=== PATIENT | female | born 1945 | race Caucasian/White ===

== ENCOUNTER 2023-12-03 15:09 | Emergency (ER) | payer MEDICARE, SELFPAY ==
[2023-12-03 15:10] VITALS: BP 153/62; PULSE 96; RESP 18; TEMP 36.4; O2SAT 96; BMI 22.8
--- NOTE | 2023-12-03 15:17 | VDLE_ITS ---
Reason For Study: pain RIGHT LEFT CFV is compressible, spontaneous, phasic, GSV is normal. competent and demonstrates normal CFV is compressible, spontaneous, phasic, augmentation. competent, and demonstrates normal Procedure augmentation. This is a venous duplex using B-mode, color FV is compressible, spontaneous, phasic, flow and spectral Doppler. competent and demonstrates normal Exam performed in department. augmentation. The exam was diagnostic. POP V is compressible, spontaneous, phasic, A preliminary report was called and/or faxed competent and demonstrates normal to ED RN. augmentation. Pt taken back to ED. T/P Trunk is compressible. PTV is compressible. Acute deep vein thrombosis is noted in the Per V. It is dilated and NONCOMPRESSIBLE. VL/Venous Duplex US, Unilateral Interpretation Summary Acute deep vein thrombosis is noted in the left peroneal vein. Ordering Physician: Provider, Ed Physician Performed By: Clifton Hart RVT
--- OUTSIDE RECORDS SUMMARY | 2023-12-03 16:23 | XMS RPT_ITS | CCD ---
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 Name Role Phone Zane Galvan DO Primary Care Provider LUDWIG DARLING Attending Unavailable LUDWIG DARLING Primary Care Unavailable LUDWIG DARLING Admitting Unavailable Zane Galvan DO Primary Care Provider [phone] Zane Galvan DO Primary Care Provider Zane Galvan DO Primary Care Provider ALYSSA WESTBROOK Referring Unavailable GALVAN, ZANE Katherine Primary Care Unavailable ALYSSA WESTBROOK Referring Unavailable GALVAN, ZANE Katherine Primary Care Unavailable GALVAN, ZANE Katherine Primary Care Unavailable ALYSSA WESTBROOK Referring Unavailable GALVAN, ZANE Katherine Primary Care Unavailable ALYSSA WE[place]BROOK Attending Unavailable SOFIA SALEEM Attending Unavailable GALVAN, ZANE Katherine Primary Care Unavailable GALVAN, ZANE L Referring Unavailable SOFIA SALEEM Attending Unavailable GALVAN, ZANE Katherine Primary Care Unavailable GALVAN, ZANE L Referring Unavailable GALVAN, ZANE Katherine Primary Care Unavailable GRACIELA LYLES Attending Unavailable GALVAN, ZANE Katherine Primary Care Unavailable GALVAN, ZANE L Referring Unavailable GALVAN, ZANE L Primary Care Unavailable GALVAN, ZANE L Primary Care Unavailable GALVAN, ZANE L Attending Unavailable JORDYN LIRA Referring Unavailable GALVAN, ZANE Katherine Primary Care Unavailable JORDYN LIRA Attending Unavailable GALVAN, ZANE Katherine Primary Care Unavailable GALVAN, ZANE L Attending Unavailable GALVAN, ZANE L Primary Care Unavailable GALVAN, ZANE L Primary Care Unavailable SOFIA SALEEM Attending Unavailable GALVAN, ZANE Katherine Primary Care Unavailable ALYSSA WESTBROOK Attending Unavailable Allergies Allergy Classification Reported Allergen(s) Allergy Type Date of Onset Reaction(s) Facility (20 sources) HMG-CoA reductase inhibitor; Translations: [[id number] REDUCTASE INHIBITORS] Drug Intolerance 09-28-20 Myalgia [facility] Work Phone: (20 sources) rosuvastatin; Translations: [ROSUVASTATIN CALCIUM] Drug Allergy 09-15-20 Intolerance [facility] Work Phone: (20 sources) Simvastatin; Translations: [SIMVASTATIN] Drug Allergy 09-15-20 Intolerance [facility] Work Phone: (20 sources) Sulfamethoxazole / Trimethoprim; Translations: [SULFAMETHOXAZOLE-TR IMETHOPRIM] Drug Allergy 06-03-20 Hives [facility] Work Phone: Medications Current Medications Medication Drug Class(es) Dates Sig (Normalized) Sig (Original) amLODIPine 5 mg oral tablet (1 source) Dihydropyridine Calcium Channel Earl Start: 10-22-2023 End: 12-21-2023 take 1 tablet by mouth once daily amLODIPine (NORVASC) 5 mg tablet Indications: Essential hypertension, benign Take 1 tablet by mouth once daily. 30 tablet 1 10/22/2023 12/21/2023 Active Completed/Discontinued Medications Medication Drug Class(es) Dates Sig (Normalized) Sig (Original) aspirin 81 mg delayed release oral tablet (20 sources) Platelet Aggregation Inhibitor, Nonsteroidal Anti-inflammatory Drug take 1 tablet by mouth once daily aspirin, enteric coated (ASPIRIN, ENTERIC COATED) 81 mg EC tablet Take 81 mg by mouth once daily. 0 Active Problems Active Problems Problem Classification Problem Date Documented Date Episodic/Chronic Disorders of lipid metabolism (20 sources) Mixed hyperlipidemia; Translations: [Mixed hyperlipidemia] Onset: 06-03-2006 06-03-2006 Chronic Essential hypertension (20 sources) Benign essential hypertension; Translations: [Essential (primary) hypertension] Onset: 06-03-2006 06-03-2006 Chronic Genitourinary symptoms and ill-defined conditions (1 source) Incontinence without sensory awareness; Translations: [Urinary incontinence without sensory awareness] Onset: 11-09-2023 Chronic Menopausal disorders (4 sources) Postmenopausal bleeding; Translations: [Postmenopausal bleeding] Onset: 10-19-2023 09-28-2023 Chronic Nausea and vomiting (1 source) Nausea; Translations: [Nausea] Onset: 11-09-2023 Episodic Nutritional deficiencies (20 sources) Vitamin D deficiency; Translations: [Vitamin D deficiency, unspecified] Onset: 03-29-2019 03-29-2019 Chronic Osteoarthritis (20 sources) Osteoarthritis of left knee joint; Translations: [Unilateral primary osteoarthritis, left knee] Onset: 09-12-2013 09-12-2013 Chronic Other connective tissue disease (1 source) Other symptoms and signs involving the musculoskeletal system; Translations: [Rigidity (muscles)] Onset: 11-09-2023 Episodic Other female genital disorders (2 sources) Vaginal bleeding; Translations: [Abnormal uterine and vaginal bleeding, unspecified] 08-21-2023 Chronic Other female genital disorders (1 source) Abnormal uterine and vaginal bleeding, unspecified; Translations: [Vaginal bleeding] Onset: 09-28-2023 Chronic Other nervous system disorders (1 source) Unspecified abnormalities of gait and mobility; Translations: [Gait disturbance] Onset: 11-09-2023 Episodic Other non-traumatic joint disorders (20 sources) Arthropathy of multiple joints; Translations: [Arthropathy, unspecified] Onset: 03-16-2017 03-16-2017 Chronic Other non-traumatic joint disorders (1 source) Pain in left knee; Translations: [Pain in left knee] Episodic Residual codes; unclassified (1 source) Transient alteration of awareness; Translations: [Transient alteration of awareness] Onset: 11-09-2023 Episodic Past or Other Problems Problem Classification Problem Date Documented Da te Episodic/Chronic Diabetes mellitus without complication (20 sources) Hyperglycemia; Translations: [Impaired fasting glucose] Onset: 01-02-2020 01-02-2020 Episodic Malaise and fatigue (20 sources) Fatigue; Translations: [Other fatigue] Onset: 11-27-2021 11-27-2021 Episodic Other and unspecified benign neoplasm (19 sources) Benign neoplasm of colon; Translations: [Benign neoplasm of colon, unspecified] Onset: 08-22-2010 08-22-2010 Episodic Other bone disease and musculoskeletal deformities (19 sources) Disorder of skeletal system; Translations: [Disorder of bone, unspecified] Onset: 06-03-2006 03-11-2016 Episodic Other bone disease and musculoskeletal deformities (19 sources) Senile osteopenia; Translations: [Other specified disorders of bone density and structure, unspecified site] Onset: 09-28-2018 09-28-2018 Episodic Other non-traumatic joint disorders (3 sources) Pain in left knee; Translations: [Pain in joint, lower leg] Onset: 08-21-2023 07-06-2023 Episodic Other screening for suspected conditions (not mental disorders or infectious disease) (20 sources) Patient encounter status; Translations: [Encounter for screening for malignant neoplasm of colon] Onset: 08-22-2010 08-22-2010 Episodic Other skin disorders (19 sources) Actinic keratosis; Translations: [Actinic keratosis] Onset: 07-01-2019 07-01-2019 Episodic Results Test Name Value Interpretation Reference Range Facil ity Vital Signs Date Time Vital Sign Value Performing Clinician Dani avelar 10-19-2023 15:50-0500 Diastolic blood pressure 70 mm[Hg] Sofia Saleem APRN.WASH TUB MACHINE OPERATOR Work Phone: [facility] 10-19-2023 15:50-0500 Heart rate 86 /min Sofia Saelem APRN.WASH TUB MACHINE OPERATOR Work Phone: [facility] 10-19-2023 15:50-0500 SaO2% (BldA) [Mass fraction] 98 % Sofia Saleem LIVESTOCK BRANDS INSPECTOR.WASH TUB MACHINE OPERATOR Work Phone: [facility] 10-19-2023 15:50-0500 Systolic blood pressure 150 mm[Hg] Sofia Saleem LIVESTOCK BRANDS INSPECTOR.WASH TUB MACHINE OPERATOR Work Phone: [facility] 10-19-2023 15:23-0500 Body weight 59.42 kg Sofia Saleem LIVESTOCK BRANDS INSPECTOR.WASH TUB MACHINE OPERATOR Work Phone: [facility] 09-28-2023 13:31-0500 Body weight 59.88 kg Sofia Haury LIVESTOCK BRANDS INSPECTOR.WASH TUB MACHINE OPERATOR Work Phone: [facility] 09-28-2023 13:31-0500 Diastolic blood pressure 78 mm[Hg] Sofia Haury LIVESTOCK BRANDS INSPECTOR.WASH TUB MACHINE OPERATOR Work Phone: [facility] 09-28-2023 13:31-0500 Systolic blood pressure 132 mm[Hg] Sofia Haury LIVESTOCK BRANDS INSPECTOR.WASH TUB MACHINE OPERATOR Work Phone: [facility] 08-21-2023 09:13-0400 Body height 153 cm Zane Galvan DO Work Phone: [facility] 08-21-2023 09:13-0400 Body temperature 98.1 [degF] Zane Galvan DO Work Phone: [facility] 08-21-2023 09:13-0400 Body weight 58.97 kg Zane Galvan DO Work Phone: [facility] 08-21-2023 09:13-0400 Diastolic blood pressure 80 mm[Hg] Zane Galvan DO Work Phone: [facility] 08-21-2023 09:13-0400 Heart rate 80 /min Zane Galvan DO Work Phone: [facility] 08-21-2023 09:13-0400 Respiratory rate 16 /min Zane Galvan DO Work Phone: [facility] 08-21-2023 09:13-0400 Systolic blood pressure 136 mm[Hg] Zane Galvan DO Work Phone: [facility] 07-06-2023 08:29-0400 Body weight 58.97 kg Jordyn Lira LIVESTOCK BRANDS INSPECTOR.WASH TUB MACHINE OPERATOR Work Phone: [facility] 07-06-2023 08:29-0400 Diastolic blood pressure 70 mm[Hg] Jordyn Lira LIVESTOCK BRANDS INSPECTOR.WASH TUB MACHINE OPERATOR Work Phone: [facility] 07-06-2023 08:29-0400 Heart rate 84 /min Jordyn Lira LIVESTOCK BRANDS INSPECTOR.WASH TUB MACHINE OPERATOR Work Phone: [facility] 07-06-2023 08:29-0400 Respiratory rate 16 /min Jordyn Lira LIVESTOCK BRANDS INSPECTOR.WASH TUB MACHINE OPERATOR Work Phone: [facility] 07-06-2023 08:29-0400 Systolic blood pressure 120 mm[Hg] Jordyn Lira LIVESTOCK BRANDS INSPECTOR.WASH TUB MACHINE OPERATOR Work Phone: [facility] 02-17-2023 08:59-0400 Body temperature 97 [degF] Zane Galvan DO Work Phone: [facility] 02-17-2023 08:59-0400 Body weight 57.61 kg Zane Galvan DO Work Phone: [facility] 02-17-2023 08:59-0400 Diastolic blood pressure 80 mm[Hg] Zane Galvan DO Work Phone: [facility] 02-17-2023 08:59-0400 Heart rate 80 /min Zane Galvan DO Work Phone: [facility] 02-17-2023 08:59-0400 Respiratory rate 16 /min Zane Galvan DO Work Phone: [facility] 02-17-2023 08:59-0400 Systolic blood pressure 130 mm[Hg] Zane Galvan DO Work Phone: [facility] 03-19-2021 15:33-0400 Body height 154.9 cm Adrian Bustamante MD Work Phone: [facility] 03-19-2021 15:33-0400 Body mass index (BMI) [Ratio] 22.52 kg/m2 Adrian Bustamante MD Work Phone: [facility] 03-19-2021 15:33-0400 Body temperature 98.2 [degF] Adrian Bustamante MD Work Phone: [facility] 03-19-2021 15:33-0400 Body weight 54.07 kg Adrian Bustamante MD Work Phone: [employer] [facility] Encounters Encounter Date Encounter Type Care Provider Facility Start: 11-27-2023 End: 11-28-2023 ambulatory ZANE L GALVAN Facility:[facility] Start: 11-12-2023 Telephone encounter Zane boss DO [facility] Start: 11-09-2023 ambulatory ALYSSA Hernandez ty:[facility] Start: 11-05-2023 End: 11-05-2023 ambulatory ZANE L GALVAN Facility:[facility] Start: 10-22-2023 End: 10-22-2023 ambulatory ZANE L GALVAN Facility:[facility] Start: 10-21-2023 Telephone encounter Sofia pedersen JUAN CARLOS Work Phone: OB/Gynecology Procedures Date Procedure Procedure Detail Performing Clinician Start: 11-26-2021 Adult depression screening assessment Zane Macdonaldrison DO Work Phone: Plan of Treatment Date Care Activity Detail Author Start: 08-21-2026 Diabetes Screening Diabetes Screenhi ciro [facility] Start: 08-20-2025 DIABETES SCREEN DIABETES SCREEN [facility] Start: 08-20-2025 Diabetes Screening Diabetes Screenin g [facility] Start: 11-05-2024 Annual PCP Team [employer]ical [employer] Sales Engineer saritha Disease Visit Annual PCP Team Chronic Disease Visit [facility] Start: 10-22-2024 Covid-19 Vaccine () Covid-19 Vaccine () [facility] Immunizations Immunization Date Immunization Notes Care Provider Fa meredith 08-21-2023 pneumococcal (PCV20) vaccine, 20 valent (PREVNAR 20) Zane Galvan DO Work Phone: [facility] Work Phone: 08-21-2023 pneumococcal Conjuga te, unspecified formulation Zane Macdonaldrison DO Work Phone: [facility] Work Phone: 01-09-2023 zoster vaccine recombinant Zane Galvan DO Work Phone: [facility] 02-13-2021 COVID-19 vaccine, ag e 12+ yr (PFIZER-BIONTECH - PURPLE TOP) Zane Galvan DO Work Phone: [facility] 01-23-2021 COVID-19 vaccine, ag e 12+ yr (PFIZER-BIONTECH - PURPLE TOP) Zane Galvan DO Work Phone: [facility] 09-28-2018 pneumococcal conjuga te vaccine, 13 valent Zane Galvan DO Work Phone: [facility] Work Phone: 09-28-2018 influenza virus vacc ine, unspecified formulation Zane Galvan DO Work Phone: [facility] 01-01-2013 zoster vaccine, live Zane Galvan DO Work Phone: [facility] 12-06-2010 pneumococcal polysaccharide vaccine, 23 valent Zane Galvan DO Work Phone: [facility] 10-23-2002 tetanus and diphther ia toxoids, adsorbed, preservative free, for adult use (2 Lf of tetanus toxoid and 2 Lf of diphtheria toxoid) Zane Galvan DO Work Phone: [facility] Payers Date Payer Category Payer Medicare AETNA MEDICARE A ETNA MEDICARE PPO [id number] 2021-Present [phone] [address] [place] [address] PPO [id number] 2021 Medicare [id number] 2021 Medicare [place]IC[place]NA PPO [id number] 2021-Present [id number] 1945 Unknown [id number] Medicare [id number] Social History Date Type Detail Facility Start: 09-03-2011 End: 03-19-2021 Tobacco smoking status NHIS Never smoker [facility] Start: 09-03-2011 End: 03-19-2021 Tobacco use and exposure Never used [facility] Start: 03-19-2021 Alcohol intake Lifetime non-d braulio (finding) [facility] Start: 03-19-2021 History SDOH Alcohol Frequency 1 [facility] Start: 1945 Sex Assigned At Not on file A [facility] Start: 11-26-2021 End: 11-05-2023 Alcohol intake Current non-drinker of alcohol (finding) [facility] Start: 1945 Sex Assigned At Female C [facility] Start: 08-10-2022 End: 08-20-2022 Exposure to SARS-CoV-2 (event) Not sure [facility] Start: 02-17-2023 End: 07-06-2023 History of Social function [facility] Work Phone: Start: 02-17-2023 End: 07-06-2023 Tobacco use panel [facility] Work Phone: Adult Depression Screening Assessment 0 [facility] Work Phone: Start: 11-05-2020 Gender identity Identifies as female gender (finding) [facility] Start: 11-05-2020 Sexual orientation Heterosexual (fin ding) [facility] Clinical Notes 03-19-2021 to 11-27-2023 Telephone Encounter - Claribel Matute - 11/12/2023 7:49 AM ESTTelephone Encounter - Alyssa Westbrook APRN.CNP - 10/21/2023 5:24 PM ESTPatient InstructionsPatient Instructions Note Date & Type Note Facility 11-27-2023 Note HNO ID: [id number] Author: SOFIA SALEEM APRN.WASH TUB MACHINE OPERATOR Service: ? Author Type: Nurse Practitioner Type: Progress Notes Filed: 11/27/2023 12:25 Note Text: Sneha Pak is a 78 year old female who presents for problem visit of vaginal bleeding. HPI: Was seen previously for one episode of postmenopausal bleeding. Endometrial biopsy showed proliferative endometrium and patient was started on Megace with plan of repeat biopsy in 6 months. Also has been using Estrogen cream as prescribed. Called in yesterday with vaginal bleeding. OB History No obstetric history on file. 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 Vasovagal syncope PAST SURGICAL HISTORY Procedure Laterality Date COLONOSCOPY FLX DX W/COLLJ SPEC WHEN PFRMD 06-29-15 COLSC FLX W/RMVL OF TUMOR POLYP LESION SNARE TQ 08/22/10 LAPAROSCOPIC APPENDECTOMY 12-22-13 LIG/TRNSXJ FLP TUBE ABDL/VAG APPR UNI/BI 1976 Tubal ligation PAST SURGICAL HISTORY OF 2015 Bowel obstruction TONSILLECTOMY PRIMARY/SECONDARY Tonsillectomy XCAPSL CTRC RMVL INSJ IO LENS PROSTH W/O ECP Bilateral 2016 Cataract Extraction with PC IOL FAMILY HISTORY Problem Relation Age of Onset Heart Mother 76 heart attack and parkinsons Heart Father 78 of heart attack/ prostate cancer Heart Brother triple bypass at 65 Prostate Cancer Brother Prostate Cancer Brother Social History Tobacco Use Smoking status: Never Smokeless tobacco: Never Vaping Use Vaping Use: Never used Substance Use Topics Alcohol use: No Drug use: No Current Outpatient Medications Medication Sig amLODIPine (NORVASC) 5 mg tablet Take 1 tablet by mouth once daily. estradiol (ESTRACE) 0.01 % (0.1 mg/gram) vaginal cream Use 1 g vaginally once daily. megestrol (MEGACE) 40 mg tablet Take 1 tablet (40 mg) by mouth once daily. ezetimibe (ZETIA) 10 mg tablet Take 1 tablet by mouth once daily. meloxicam (MOBIC) 15 mg tablet Take 1 tablet by mouth once daily. lisinopril (ZESTRIL, PRINIVIL) 40 mg tablet Take 1 tablet by mouth once daily. aspirin, enteric coated (ASPIRIN, ENTERIC COATED) 81 mg EC tablet Take 81 mg by mouth once daily. calcium carbonate-Vit D3-minerals (CALTRATE-600 PLUS VITAMIN D3) 600 mg calcium- 400 unit Tab Take 1 tablet by mouth twice daily. Marquand-3 Fatty Acids (FISH OIL) 500 mg cap Take 1 capsule by mouth once daily. THERAPEUTIC MULTIVITAMIN TAB Take one(1) tablet daily. TURMERIC ORAL Take by mouth. Takes 1 tablet daily No current facility-administered medications for this visit. Allergies As of Date: 11/27/2023 Allergen Noted Reaction CRESTOR [ROSUVASTATIN CALCIUM] 09/15/2006 Intolerance SEPTRA [SULFAMETHOXAZOLE-TRIMETHO*2005 Hives SIMVASTATIN 09/15/2006 Intolerance [id number] REDUCTASE INHIBIT*09/28/2018 Myalgia Fully Assessed 11/27/2023 REVIEW OF SYSTEMS Abdomen: No bloating, early satiety, indigestion, or increased flatulence. No abdominal pain, nausea, vomiting, diarrhea, or constipation. Bladder: No dysuria, gross hematuria, urinary frequency, urinary urgency, or incontinence. Breast: No breast lumps, nipple d/c, overlying skin changes, redness or skin retraction. Expanded ROS: N/A Allergies and current medication updated:Yes EXAM: BP 168/58 Wt 128 lb (58.1kg) GENERAL: pleasant, female in no apparent distress HEENT: Normocephalic, atraumatic, mucus membranes moist, and no lesions PELVIC: external genitalia normal, normal Bartholin's glands, urethra, Musella's glands, no vulvar lesions, no cervical lesions, good vaginal support, physiologic discharge present, normal appearing perineal body and perianal region + continued improvement to atrophy, mild to labia majora + blood from cervical os BIMANUAL: deferred NEURO: alert and oriented x3,exam grossly non-focal EXTREMITIES: normal ASSESSMENT AND PLAN: 1. Postmenopausal bleeding - ICD9: 627.1, ICD10: N95.0 - Source of blood from os - Proliferative endometrium, on Megace - Consider Endosee with physician - To schedule follow up with physician Sofia Saleem APRN.WASH TUB MACHINE OPERATOR Medical Decision Making: Problems: Moderate: 1+ chronic illnesses with change Risk: Minimal: Minimal risk from testing/treatment Medical Decision Making Level: 2 - Straightforward [facility] 11-12-2023 Miscellaneous Notes Opened in error. Claribel Matute MA documented in this encounter [facility] 11-09-2023 Note HNO ID: [id number] Author: Sofia Harris RT(R) Service: ? Author Type: Technologist Type: Progress Notes Filed: 11/09/2023 10:05 AM Note Text: Radiology Service Progress Note PATIENT NAME: Sneha Pak DATE OF SERVICE: November 09, 2023 TIME: 10:05 AM PATIENT IDENTITY VERIFICATION COMPLETED USING TWO (2) IDENTIFIERS: Name and Date of confirmed by patient verbally. FALL SCREENING: Has the patient had 2 falls in the last year or 1 fall with injury or currently using an Ambulatory Assistive Device (Walker, Cane, Wheelchair, Crutches, etc.)? No PATIENT GENDER DATA: Female. status: : No status: NO. PATIENT RELEVANT IMPLANT DATA REVIEWED: Yes RADIOLOGY DEPARTMENT: Ultrasound PERIPHERAL IV DATA: Not applicable SIGNED BY: Sofia Harris RDMS, RVT November 09, 2023 10:05 AM [facility] 11-05-2023 Note HNO ID: [id number] Author: Alyssa Westbrook APRN.WASH TUB MACHINE OPERATOR Service: ? Author Type: Nurse Practitioner Type: Progress Notes Filed: 11/06/2023 7:30 AM Note Text: Chief Complaint Patient presents with: Hypertension HPI Sneha Pak is a 78 year old female who presents here today for Above Complaints. Today: Here for a BP recheck. Was started on Amlodipine 5mg daily on 10/22, states is tolerating medication well. Is taking in addition to already scheduled lisinopril 40mg daily. Last Thursday-6 days ago-around 11am-was outside with son helping son splitting wood. She got tired and son helped her sit down and she was resting on a stump. Son went inside to get water and banana for her. Son felt like she may throw up but she didn't. Son states she leaned back and he had to catch her-she went rigid-only lasted for about 20 seconds. Patient doesn't remember most of this. She then felt weak and lightheaded-had to have her son help her into the house and she napped. After about an hour was able to get up and around the house. At some point she had wet herself. BP when she checked BP at 2:30 pm was 83/70, but rechecked and got 145/60's and 135/60's. Did have a bowl of oatmeal that morning which is what she typically eats on a daily basis. That morning prior to the incident was 114/59. Son said she was talking funny/slurring speech. Denies current sx-no weakness, AANDOx3. Denies headache. No chest pains or palpitations. This morning BP was 110/80 and 125/104. Past medical history, appointments, medications, allergies reviewed. 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 Vasovagal syncope Previous Surgical History PAST SURGICAL HISTORY Procedure Laterality Date COLONOSCOPY FLX DX W/COLLJ SPEC WHEN PFRMD 06-29-15 COLSC FLX W/RMVL OF TUMOR POLYP LESION SNARE TQ 08/22/10 LAPAROSCOPIC APPENDECTOMY 12-22-13 LIG/TRNSXJ FLP TUBE ABDL/VAG APPR UNI/BI 1976 Tubal ligation PAST SURGICAL HISTORY OF 2014 Bowel obstruction TONSILLECTOMY PRIMARY/SECONDARY Tonsillectomy XCAPSL CTRC RMVL INSJ IO LENS PROSTH W/O ECP Bilateral 2015 Cataract Extraction with PC IOL Family History FAMILY HISTORY Problem Relation Age of Onset Heart Mother 76 heart attack and parkinsons Heart Father 78 of heart attack/ prostate cancer Heart Brother triple bypass at 65 Prostate Cancer Brother Prostate Cancer Brother Patient Allergies ALLERGIES Allergen Reactions Crestor [Rosuvastat* Intolerance Septra [Sulfamethox* Hives Simvastatin Intolerance Mueeqfl-Pbh-Gfc Red* Myalgia Current Medications Current Outpatient Medications on File Prior to Visit Medication Sig amLODIPine (NORVASC) 5 mg tablet Take 1 tablet by mouth once daily. estradiol (ESTRACE) 0.01 % (0.1 mg/gram) vaginal cream Use 1 g vaginally once daily. megestrol (MEGACE) 40 mg tablet Take 1 tablet (40 mg) by mouth once daily. ezetimibe (ZETIA) 10 mg tablet Take 1 tablet by mouth once daily. meloxicam (MOBIC) 15 mg tablet Take 1 tablet by mouth once daily. lisinopril (ZESTRIL, PRINIVIL) 40 mg tablet Take 1 tablet by mouth once daily. TURMERIC ORAL Take by mouth. Takes 1 tablet daily aspirin, enteric coated (ASPIRIN, ENTERIC COATED) 81 mg EC tablet Take 81 mg by mouth once daily. calcium carbonate-Vit D3-minerals (CALTRATE-600 PLUS VITAMIN D3) 600 mg calcium- 400 unit Tab Take 1 tablet by mouth twice daily. Marquand-3 Fatty Acids (FISH OIL) 500 mg cap Take 1 capsule by mouth once daily. THERAPEUTIC MULTIVITAMIN TAB Take one(1) tablet daily. No current facility-administered medications on file prior to visit. Social History Social History Tobacco Use Smoking status: Never Smokeless tobacco: Never Vaping Use Vaping Use: Never used Substance Use Topics Alcohol use: No Drug use: No Review of Symptoms REVIEW OF SYSTEMS See HPI, otherwise negative EXAM: BP 150/62 (BP Site: Left Arm, BP Position: Sitting, BP Cuff Size: Regular Adult) Pulse 89 Resp 16 Wt 58.6 kg (129 lb 3.2 oz) SpO2 96% BMI 25.04 kg/m? General Appearance: Well appearing, alert, in no acute distress, well-hydrated, well nourished.. Head: Normocephalic, no masses, lesions, tenderness or abnormalities. Eyes: Anicteric sclera. Pupils are equally round and reactive to light. Extraocular movements are intact. . Ears: External ears normal, canals clear. Nose/Sinuses: Nares normal, septum midline, mucosa normal, no drainage or sinus tenderness. Oropharynx: Lips, mucosa, and tongue normal, teeth and gums normal, oropharynx normal. Neck: Supple, no adenopathy; thyroid symmetric, normal size, no bruits. Lungs: Lungs clear to auscultation. No (more content not included)... [facility] 11-05-2023 Note HNO ID: [id number] Author: MARIA ESTHER ROWLAND MD Service: Cardiovascular Surgery Author Type: Physician Type: Procedures Filed: 11/27/2023 13:55 Note Text: Patient Name: Sneha Pak : 1945 Ordering Provider: Alyssa Westbrook Indication: R40.4 Transient alteration of awareness Type of Monitor: Extended Monitoring-Zio Patch Enrollment Dates: 11/05/2023-11/19/2023 [facility] 10-22-2023 Note HNO ID: [id number] Author: Giulia Steinberg RT(R) Service: Radiology Author Type: Technologist Type: Progress Notes Filed: 10/22/2023 1:31 PM Note Text: Radiology Service Progress Note PATIENT NAME: Sneha Pak DATE OF SERVICE: October 22, 2023 TIME: 1:22 PM PATIENT IDENTITY VERIFICATION COMPLETED USING TWO (2) IDENTIFIERS: Name and Date of confirmed by patient verbally. FALL SCREENING: Has the patient had 2 falls in the last year or 1 fall with injury or currently using an Ambulatory Assistive Device (Walker, Cane, Wheelchair, Crutches, etc.)? No PATIENT GENDER DATA: Female. status: : No status: NO. PATIENT RELEVANT IMPLANT DATA REVIEWED: Yes RADIOLOGY DEPARTMENT: General X-ray: Exam(s) Completed: Chest X-Ray PERIPHERAL IV DATA: Not applicable SIGNED BY: Giulia Steinberg RT(R) October 22, 2023 1:22 PM [facility] 10-22-2023 Note HNO ID: [id number] Author: Alyssa Westbrook APRN.WASH TUB MACHINE OPERATOR Service: ? Author Type: Nurse Practitioner Type: Progress Notes Filed: 10/26/2023 7:28 AM Note Text: Chief Complaint Patient presents with: BP Check HPI Sneha Pak is a 77 year old female who presents here today for Above Complaints. Today: Had elevated BP on 2 days ago at [facility] office when had biopsy completed. Was told to follow up with PCP to discuss this. Patient states this has been trending a bit higher over the past month or so. Denies CP, SOB, headaches, no new vision changes, dizziness, palpitations. Past medical history, appointments, medications, allergies reviewed. 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 Vasovagal syncope Previous Surgical History PAST SURGICAL HISTORY Procedure Laterality Date COLONOSCOPY FLX DX W/COLLJ SPEC WHEN PFRMD 06-29-15 COLSC FLX W/RMVL OF TUMOR POLYP LESION SNARE TQ 08/22/10 LAPAROSCOPIC APPENDECTOMY 12-22-13 LIG/TRNSXJ FLP TUBE ABDL/VAG APPR UNI/BI 1976 Tubal ligation PAST SURGICAL HISTORY OF 2014 Bowel obstruction TONSILLECTOMY PRIMARY/SECONDARY Tonsillectomy XCAPSL CTRC RMVL INSJ IO LENS PROSTH W/O ECP Bilateral 2016 Cataract Extraction with PC IOL Family History FAMILY HISTORY Problem Relation Age of Onset Heart Mother 76 heart attack and parkinsons Heart Father 78 of heart attack/ prostate cancer Heart Brother triple bypass at 65 Prostate Cancer Brother Prostate Cancer Brother Patient Allergies ALLERGIES Allergen Reactions Crestor [Rosuvastat* Intolerance Septra [Sulfamethox* Hives Simvastatin Intolerance Dsgklts-Gws-Cxr Red* Myalgia Current Medications Current Outpatient Medications on File Prior to Visit Medication Sig estradiol (ESTRACE) 0.01 % (0.1 mg/gram) vaginal cream Use 1 g vaginally once daily. megestrol (MEGACE) 40 mg tablet Take 1 tablet (40 mg) by mouth once daily. ezetimibe (ZETIA) 10 mg tablet Take 1 tablet by mouth once daily. meloxicam (MOBIC) 15 mg tablet Take 1 tablet by mouth once daily. lisinopril (ZESTRIL, PRINIVIL) 40 mg tablet Take 1 tablet by mouth once daily. TURMERIC ORAL Take by mouth. Takes 1 tablet daily aspirin, enteric coated (ASPIRIN, ENTERIC COATED) 81 mg EC tablet Take 81 mg by mouth once daily. calcium carbonate-Vit D3-minerals (CALTRATE-600 PLUS VITAMIN D3) 600 mg calcium- 400 unit Tab Take 1 tablet by mouth twice daily. Marquand-3 Fatty Acids (FISH OIL) 500 mg cap Take 1 capsule by mouth once daily. THERAPEUTIC MULTIVITAMIN TAB Take one(1) tablet daily. No current facility-administered medications on file prior to visit. Social History Social History Tobacco Use Smoking status: Never Smokeless tobacco: Never Vaping Use Vaping Use: Never used Substance Use Topics Alcohol use: No Drug use: No Review of Symptoms REVIEW OF SYSTEMS See HPI, otherwise negative EXAM: BP 154/82 (BP Site: Left Arm, BP Position: Sitting, BP Cuff Size: Regular Adult) Pulse 73 Resp 16 Wt 59 kg (130 lb) SpO2 96% BMI 25.19 kg/m? General Appearance: Well appearing, alert, in no acute distress, well-hydrated, well nourished.. Lungs: Lungs clear to auscultation. No wheezing, rhonchi, rales.. Heart: RRR without murmur, gallop, or rubs. No ectopy. Psychiatric: pleasant, cooperative. Health Maintenance List Hepatitis C Screening Never done DTaP,Tdap,Td Vaccine(1 - Tdap) due on 10/24/2002 RSV Vaccine(1 - 1-dose 60+ series) Never done Covid-19 Vaccine( - 2022- season) due on 07/24/2023 BP Controlled (<130/80) due on 08/20/2023 Influenza Vaccine(1) due on 05/22/2024 Annual PCP Team Chronic Disease Visit due on 08/21/2024 Diabetes Screening due on 08/21/2026 Bone Density Screening Completed Depression Assessment Completed Shingrix Vaccine Completed Pneumococcal Vaccine: 65+ Completed Colorectal Cancer Screening Discontinued Advance Directive Discussion Discontinued Data reviewed Previous records, office notes ASSESSMENT/PLAN: 1. Essential hypertension, benign - ICD9: 401.1, ICD10: I10 - Uncontrolled - Recommend home blood pressure monitoring, to bring results to next visit - Encouraged sodium restriction, DASH or Mediterranean diet - Recommend regular aerobic exercise Add amlodipine daily. To monitor HR and BP x2 weeks and report to the office. - XR CHEST 2V FRONTAL/LAT - AMLODIPINE 5 MG TABLET Alyssa Westbrook APRN.CNP [facility] 10-21-2023 Miscellaneous Notes Noted, thank you. Alyssa Westbrook APRN.CNP Patient calling to say she had a biopsy done by [facility] and Sofia Saleem [employer] CONSULTANT advised her that her BP was elevated and she should follow up with her PCP. BP was 150/70. She does not take it routinely at home. She says when she checked it on 10/05/23 it was 144/59. She says she is not having any symptoms. Scheduled appointment with Alyssa Westbrook NP for follow up. Tessa Velasco RN documented in this encounter [facility] 10-21-2023 Miscellaneous Notes Called patient. Notified of needing f/u with PCP for elevated BP. Scheduled 6 month EMB f/u. Carmita Tapia RN Please assist patient in scheduling 6 month EMB/follow up. To notify with further episodes of postmenopausal bleeding. Sofia Saleem APRN.CNP Also, BP was elevated at appointment. Would encourage follow up with PCP about this. Please notify patient. Sofia Saleem APRN.CNP Called patient to discuss proliferative endometrium results. Reviewed that it is not a form of endometrial hyperplasia. Reviewed that it could indicate that she has active estradiol secretion. Reviewed that the possible excess of estrogen puts her at risk of developing endometrial hyperplasia. Discussed treatment and management options including: Levonorgestrel IUD or oral progesterone Based on negative history of endometrial hyperplasia, no obesity, and no family history of endometrial cancer, likely low risk for developing hyperplasia and plan for oral progesterone. Reviewed possible side effects of bloating irritability, depression, or headache. Plan is to start Megace 40 mg daily and to repeat biopsy in about 6 months. Please assist patient in scheduling. Patient verbalizes understanding to above information and denies further questions. She does report another episode of postmenopausal bleeding today - may be related to EMB done 2 days ago. Patient also asking estrogen cream rx change from [facility] to [facility] pharmacy. Discussed possible increase in cost. To notify if she would prefer it back to [facility] based on cost. Sofia Saleem APRN.MACARENA documented in this encounter [facility] 10-19-2023 Note HNO ID: [id number] Author: Sofia Saleem APRN.CNP Service: ? Author Type: Nurse Practitioner Type: Progress Notes Filed: 10/19/2023 4:08 PM Note Text: Sneha is a 77 year old Female who presents today for an endometrial biopsy for post menopausal bleeding. Continues to use estrogen cream. test: n/a UNIVERSAL PROTOCOL / SAFETY CHECKLIST Procedure to be Performed: Endometrial Biopsy Sign In: A Moment of CARE was completed. Personnel directly involved with the procedure wore the appropriate PPE (Personal Protective Equipment). Patient/Surrogate Stated/Verified: PATIENT VERIFIED(optional for EMERGENT procedures): Patient name, Date of , Relevant allergies, and The intended procedure Time Out Communication: Intended patient and procedure match the source documents. Consent documented and matches the intended procedure. Sign Out: SIGN OUT (optional for EMERGENT procedures): All specimen containers correctly labeled. All instruments, equipment, possible retained foreign bodies accounted for. Post-procedure follow-up management communicated and Plan of Care Visit completed when applicable. PROCEDURE: EXTERNAL GENITALIA: Normal in appearance without lesions VAGINA: Normal in appearance without lesions BIOPSY: Speculum placed into the vagina with excellent visualization of the cervix. Cervix cleaned with betadine. Anterior lip of cervix grasped with single toothed tenaculum. Uterus sounded to 9 cm. Pipelle inserted into the uterus without difficulty and endometrial biopsy obtained. Specimen labeled and sent to pathology. Hemostasis achieved. Significant improvement to atrophy noted. Procedure Summary: Patient tolerated procedure well. ASSESSMENT: post menopausal bleeding PLAN: Specimens labeled and sent to Pathology. Will notify patient of results in 1-2 weeks. Post-procedure instructions reviewed and written material given to the patient. Sofia Saleem APRN.[facility] 10-19-2023 Instructions Shira Carlin Ma - 10/19/2023 3:17 PM EST YOUR RECOVERY After your biopsy you may have: Vaginal bleeding (less than a normal menstrual period) Mild cramping Do NOT put anything in the vagina for 1 week after your endometrial biopsy. This includes: tampons douches and refraining from having sexual intercourse If you have any discomfort, you may take an over the counter pain medication (motrin, advil, ibuprofen, tylenol, etc). If this does not relieve your discomfort, contact the office. It is okay to wear a sanitary pad until the discharge and spotting stops. RISKS Although problems seldom occur with endometrial biopsies, there can be some complications. You may feel faint during and shortly after the procedure as well as have some bleeding after the procedure. There is also a risk of infection after the procedure. These complications are rare and can be easily treated. You should contact you doctor is you have any of the following: Heavy bleeding (more than your normal period) Bleeding with clots Severe abdominal pain Fever (more than 100.4F) Foul smelling vaginal discharge RESULTS We will have the results of your biopsy in 1-2 weeks. If you do not hear the results of your biopsy after 2 weeks, please contact the office for the results. If you have any additional questions or concerns please do not hesitate to contact the office. documented in this encounter [facility] 10-19-2023 History of Present illness Narrative Sneha is a 77 year old Female who presents today for an endometrial biopsy for post menopausal bleeding. Continues to use estrogen cream. test: n/a UNIVERSAL PROTOCOL / SAFETY CHECKLIST Procedure to be Performed: Endometrial Biopsy Sign In: A Moment of CARE was completed. Personnel directly involved with the procedure wore the appropriate PPE (Personal Protective Equipment). Patient/Surrogate Stated/Verified: PATIENT VERIFIED(optional for EMERGENT procedures): Patient name, Date of , Relevant allergies, and The intended procedure Time Out Communication: Intended patient and procedure match the source documents. Consent documented and matches the intended procedure. Sign Out: SIGN OUT (optional for EMERGENT procedures): All specimen containers correctly labeled. All instruments, equipment, possible retained foreign bodies accounted for. Post-procedure follow-up management communicated and Plan of Care Visit completed when applicable. PROCEDURE: EXTERNAL GENITALIA: Normal in appearance without lesions VAGINA: Normal in appearance without lesions BIOPSY: Speculum placed into the vagina with excellent visualization of the cervix. Cervix cleaned with betadine. Anterior lip of cervix grasped with single toothed tenaculum. Uterus sounded to 9 cm. Pipelle inserted into the uterus without difficulty and endometrial biopsy obtained. Specimen labeled and sent to pathology. Hemostasis achieved. Significant improvement to atrophy noted. Procedure Summary: Patient tolerated procedure well. ASSESSMENT: post menopausal bleeding PLAN: Specimens labeled and sent to Pathology. Will notify patient of results in 1-2 weeks. Post-procedure instructions reviewed and written material given to the patient. Sofia Saleem APRN.MACARENA documented in this encounter [facility] 10-14-2023 Miscellaneous Notes Patient notified. JORDYN PENA RN I see she has an appointment 10/19 for EMB. We can discuss and follow up then. Likely not related to estrogen cream use. The long drive could've contributed to the hip pain. Monitor symptoms - to schedule follow up either virtually or in office if estrogen cream is not working out for patient. Sofia Saleem APRN.MACARENA Patient seen on 09/28/23. States she used the vaginal estrogen cream for 2 weeks. Patient has noticed a flare up in her arthritis since using it. Drove to [place] and had hip pain. Patient asking if it's possible the estrogen could cause this. Discussed local vs systemic effect of medication. Patient aware EH returns to the office tomorrow. Carmita Tapia RN documented in this encounter [facility] 09-28-2023 Note HNO ID: [id number] Author: Sofia Saleem APRN.MACARENA Service: ? Author Type: Nurse Practitioner Type: Progress Notes Filed: 09/28/2023 2:27 PM Note Text: Mental Health Counselor offered: Patient declines. Sneha Pak is a 77 year old female who presents for problem visit of postmenopausal bleeding x1 episode. HPI: Patient reports that she saw PCP at the end of July for an episode of vaginal bleeding that occurred one time around August 11. Bleeding was pink discharge/small amount of bright red. Was not doing anything outside of her normal routine. However, she did have intercourse prior to the bleeding. She's not sure how soon before, but not the day of. No bleeding since. Denies vaginal dryness or irritation. Has subsequent intercourse and has had no bleeding. 09/01/23 ultrasound showed a 0.2 cm endometrial echo complex, small amount of free fluid in the endometrial canal, and calcifications of the uterus. OB History No obstetric history on file. 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 Vasovagal syncope PAST SURGICAL HISTORY Procedure Laterality Date COLONOSCOPY FLX DX W/COLLJ SPEC WHEN PFRMD 06-29-15 COLSC FLX W/RMVL OF TUMOR POLYP LESION SNARE TQ 08/22/10 LAPAROSCOPIC APPENDECTOMY 12-22-13 LIG/TRNSXJ FLP TUBE ABDL/VAG APPR UNI/BI 1976 Tubal ligation PAST SURGICAL HISTORY OF 2014 Bowel obstruction TONSILLECTOMY PRIMARY/SECONDARY Tonsillectomy XCAPSL CTRC RMVL INSJ IO LENS PROSTH W/O ECP Bilateral 2015 Cataract Extraction with PC IOL FAMILY HISTORY Problem Relation Age of Onset Heart Mother 76 heart attack and parkinsons Heart Father 78 of heart attack/ prostate cancer Heart Brother triple bypass at 65 Prostate Cancer Brother Prostate Cancer Brother Social History Tobacco Use Smoking status: Never Smokeless tobacco: Never Vaping Use Vaping Use: Never used Substance Use Topics Alcohol use: No Drug use: No Current Outpatient Medications Medication Sig ezetimibe (ZETIA) 10 mg tablet Take 1 tablet by mouth once daily. meloxicam (MOBIC) 15 mg tablet Take 1 tablet by mouth once daily. lisinopril (ZESTRIL, PRINIVIL) 40 mg tablet Take 1 tablet by mouth once daily. TURMERIC ORAL Take by mouth. Takes 1 tablet daily aspirin, enteric coated (ASPIRIN, ENTERIC COATED) 81 mg EC tablet Take 81 mg by mouth once daily. calcium carbonate-Vit D3-minerals (CALTRATE-600 PLUS VITAMIN D3) 600 mg calcium- 400 unit Tab Take 1 tablet by mouth twice daily. Marquand-3 Fatty Acids (FISH OIL) 500 mg cap Take 1 capsule by mouth once daily. THERAPEUTIC MULTIVITAMIN TAB Take one(1) tablet daily. No current facility-administered medications for this visit. Allergies As of Date: 09/28/2023 Allergen Noted Reaction CRESTOR [ROSUVASTATIN CALCIUM] 09/15/2006 Intolerance SEPTRA [SULFAMETHOXAZOLE-TRIMETHO*2005 Hives SIMVASTATIN 09/15/2006 Intolerance TAWPOSQ-LIR-EYI REDUCTASE INHIBIT*09/28/2018 Myalgia Fully Assessed 09/28/2023 REVIEW OF SYSTEMS Abdomen: No bloating, early satiety, indigestion, or increased flatulence. No abdominal pain, nausea, vomiting, diarrhea, or constipation. Bladder: No dysuria, gross hematuria, urinary frequency, urinary urgency, or incontinence. Breast: No breast lumps, nipple d/c, overlying skin changes, redness or skin retraction. Expanded ROS: N/A Allergies and current medication updated:Yes EXAM: There were no vitals taken for this visit. GENERAL: pleasant, female in no apparent distress HEENT: Normocephalic, atraumatic, mucus membranes moist, and no lesions NECK: Supple, full range of motion, no adenopathy, and thyroid normal DERMATOLOGY: Normal, without lesions, non-icteric, and non-hirsute BREAST: deferred CHEST: Normal inspiratory effort ABDOMEN: soft, non-tender, and no masses PELVIC: external genitalia normal, normal Bartholin's glands, urethra, Musella's glands, no vulvar lesions, no cervical lesions, good vaginal support, physiologic discharge present, normal appearing perineal body and perianal region, pale cervix, atrophy noted to vaginal pina and cervix BIMANUAL: uterus normal size, shape and consistency, no adnexal masses, and non-tender NEURO: alert and oriented x3,exam grossly non-focal EXTREMITIES: normal ASSESSMENT/PLAN: 1. Postmenopausal bleeding - ICD9: 627.1, ICD10: N95.0 (primary diagnosis) - 1 episode in July - Reviewed potential causes of PMB, including atrophy or endometrial malignancy - (more content not included)... [facility] 09-28-2023 Instructions Sofia Saleem APRN.CNP - 09/28/2023 2:10 PM EST Estrogen cream: Vaginally nightly for 2 weeks THEN twice a week [facility] Should be around $25-30. [address] [place], [place] Ask them to help you use [facility] to get this discount. If you are asked to pay a lot more than 25-30$, please call me. Plan for endometrial biopsy. Take 600 mg of Ibuprofen 30 minutes prior. [place] will need to be avoided for 1-2 weeks after procedure. documented in this encounter [facility] 09-28-2023 History of Present illness Narrative Mental Health Counselor offered: Patient declines. Sneha Pak is a 77 year old female who presents for problem visit of postmenopausal bleeding x1 episode. HPI: Patient reports that she saw PCP at the end of July for an episode of vaginal bleeding that occurred one time around August 11. Bleeding was pink discharge/small amount of bright red. Was not doing anything outside of her normal routine. However, she did have intercourse prior to the bleeding. She's not sure how soon before, but not the day of. No bleeding since. Denies vaginal dryness or irritation. Has subsequent intercourse and has had no bleeding. 09/01/23 ultrasound showed a 0.2 cm endometrial echo complex, small amount of free fluid in the endometrial canal, and calcifications of the uterus. OB History No obstetric history on file. 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 Vasovagal syncope PAST SURGICAL HISTORY Procedure Laterality Date COLONOSCOPY FLX DX W/COLLJ SPEC WHEN PFRMD 06-29-15 COLSC FLX W/RMVL OF TUMOR POLYP LESION SNARE TQ 08/22/10 LAPAROSCOPIC APPENDECTOMY 12-22-13 LIG/TRNSXJ FLP TUBE ABDL/VAG APPR UNI/BI 1976 Tubal ligation PAST SURGICAL HISTORY OF 2014 Bowel obstruction TONSILLECTOMY PRIMARY/SECONDARY <AGE 11 Tonsillectomy XCAPSL CTRC RMVL INSJ IO LENS PROSTH W/O ECP Bilateral 2016 Cataract Extraction with PC IOL FAMILY HISTORY Problem Relation Age of Onset Heart Mother 76 heart attack and parkinsons Heart Father 78 of heart attack/ prostate cancer Heart Brother triple bypass at 65 Prostate Cancer Brother Prostate Cancer Brother Social History Tobacco Use Smoking status: Never Smokeless tobacco: Never Vaping Use Vaping Use: Never used Substance Use Topics Alcohol use: No Drug use: No Current Outpatient Medications Medication Sig ezetimibe (ZETIA) 10 mg tablet Take 1 tablet by mouth once daily. meloxicam (MOBIC) 15 mg tablet Take 1 tablet by mouth once daily. lisinopril (ZESTRIL, PRINIVIL) 40 mg tablet Take 1 tablet by mouth once daily. TURMERIC ORAL Take by mouth. Takes 1 tablet daily aspirin, enteric coated (ASPIRIN, ENTERIC COATED) 81 mg EC tablet Take 81 mg by mouth once daily. calcium carbonate-Vit D3-minerals (CALTRATE-600 PLUS VITAMIN D3) 600 mg calcium- 400 unit Tab Take 1 tablet by mouth twice daily. Marquand-3 Fatty Acids (FISH OIL) 500 mg cap Take 1 capsule by mouth once daily. THERAPEUTIC MULTIVITAMIN TAB Take one(1) tablet daily. No current facility-administered medications for this visit. Allergies As of Date: 09/28/2023 Allergen Noted Reaction CRESTOR [ROSUVASTATIN CALCIUM] 09/15/2006 Intolerance SEPTRA [SULFAMETHOXAZOLE-TRIMETHO*2005 Hives SIMVASTATIN 09/15/2006 Intolerance EVFHYWL-QDV-ILS REDUCTASE INHIBIT*09/28/2018 Myalgia Fully Assessed 09/28/2023 REVIEW OF SYSTEMS Abdomen: No bloating, early satiety, indigestion, or increased flatulence. No abdominal pain, nausea, vomiting, diarrhea, or constipation. Bladder: No dysuria, gross hematuria, urinary frequency, urinary urgency, or incontinence. Breast: No breast lumps, nipple d/c, overlying skin changes, redness or skin retraction. Expanded ROS: N/A Allergies and current medication updated:Yes EXAM: There were no vitals taken for this visit. GENERAL: pleasant, female in no apparent distress HEENT: Normocephalic, atraumatic, mucus membranes moist, and no lesions NECK: Supple, full range of motion, no adenopathy, and thyroid normal DERMATOLOGY: Normal, without lesions, non-icteric, and non-hirsute BREAST: deferred CHEST: Normal inspiratory effort ABDOMEN: soft, non-tender, and no masses PELVIC: external genitalia normal, normal Bartholin's glands, urethra, Musella's glands, no vulvar lesions, no cervical lesions, good vaginal support, physiologic discharge present, normal appearing perineal body and perianal region, pale cervix, atrophy noted to vaginal pina and cervix BIMANUAL: uterus normal size, shape and consistency, no adnexal masses, and non-tender NEURO: alert and oriented x3,exam grossly non-focal EXTREMITIES: normal ASSESSMENT/PLAN: 1. Postmenopausal bleeding - ICD9: 627.1, ICD10: N95.0 (primary diagnosis) - 1 episode in July - Reviewed potential causes of PMB, including atrophy or endometrial malignancy - Endometrial Biopsy recommended. Reviewed post care with patient and what to expect. Patient would like to return to have biopsy done. - Pt. Low risk for endometrial malignancy based on negative family history, BMI, but would still recommend to rule out malignancy 2. Vaginal atrophy - ICD9: 627.3, ICD10: N95.2 - Noted to vaginal pina and cervix - Vaginal estrogen cream prescribed - Reviewed local effects, not systemic - Discussed how to use and timing for improvement - To reassess at EMB appointment, although more time may be needed to see improvement Sofia Saleem APRN.CNP Medical Decision Making: Problems: Moderate: New problem with uncertain prognosis Data: Unique source(s) for external note(s) reviewed: 1 Unique test result(s) reviewed: 1 Risk: Low: Low risk from testing/treatment Moderate: Drug management Medical Decision Making Level: 4 - Moderate documented in this encounter [facility] 09-10-2023 Miscellaneous Notes Pt returned call and given provider's message below with verbalized understanding. Transferred to pss. Pt spouse informed. Will have pt contact office. Claribel Matute MA Please inform patient that her pelvic US shows IMPRESSION: Small amount of free fluid in the endometrial canal. Foci of calcifications in the uterus. Ovaries not identified. I would like her to follow up with Garbage Collector Driver to determine if any further endometrial biopsy or testing is needed, since she had some vaginal bleeding. Zane Galvan DO documented in this encounter [facility] 09-02-2023 Miscellaneous Notes Phoned patient and went over results, notes from Dr Galvan with understanding. Gave patient the my chart help line phone number, she has not been able to get on her my chart. Please inform patient that overall her labs are stable except for high cholesterol.continue to limit fried/fast/fatty foods in diet Zane Galvan DO documented in this encounter [facility] 09-01-2023 Note HNO ID: [id number] Author: Kaur Riojas RDMS Service: ? Author Type: Cotton Roll Packer Type: Progress Notes Filed: 09/01/2023 11:19 AM Note Text: Radiology Service Progress Note PATIENT NAME: Sneha Pak DATE OF SERVICE: September 01, 2023 TIME: 11:19 AM PATIENT IDENTITY VERIFICATION COMPLETED USING TWO (2) IDENTIFIERS: Name and Date of confirmed by patient verbally. FALL SCREENING: Has the patient had 2 falls in the last year or 1 fall with injury or currently using an Ambulatory Assistive Device (Walker, Cane, Wheelchair, Crutches, etc.)? No PATIENT GENDER DATA: Female. status: : No status: NO. PATIENT RELEVANT IMPLANT DATA REVIEWED: Not Applicable RADIOLOGY DEPARTMENT: Ultrasound PERIPHERAL IV DATA: Not applicable SIGNED BY: Kaur Riojas RDMS September 01, 2023 11:19 AM [facility] 08-21-2023 Note HNO ID: [id number] Author: Graciela Lyles PA-C Service: ? Author Type: Physician Rejoiner Type: Progress Notes Filed: 08/21/2023 2:17 PM Note Text: Graciela Lyles PA-C Department of Orthopaedics Orthopaedics [address] [place] [id number] Dept: [phone] August 21, 2023 SUBJECTIVE: CHIEF COMPLAINT: New and Knee Pain of the Left Knee HPI: Ms. Sneha Pak is a 77 year old female. She presents today with intermittent left knee pain. She is here today with her . Today she rates her pain a 0 on a scale of 0 to 10 at rest. She states that she does not have a significant amount of daily knee pain. She does have occasional sharp knee pain, most recently it lasted for a few days this summer. She feels like her knee is knocking together. She takes no mediations for the pain. She denies any numbness/tingling, weakness, locking/catching, giving out or previous knee surgery. 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 Vasovagal syncope Past Surgical History: PAST SURGICAL HISTORY Procedure Laterality Date COLONOSCOPY FLX DX W/COLLJ SPEC WHEN PFRMD 06-29-15 COLSC FLX W/RMVL OF TUMOR POLYP LESION SNARE TQ 08/22/10 LAPAROSCOPIC APPENDECTOMY 12-22-13 LIG/TRNSXJ FLP TUBE ABDL/VAG APPR UNI/BI 1976 Tubal ligation PAST SURGICAL HISTORY OF 2014 Bowel obstruction TONSILLECTOMY PRIMARY/SECONDARY Tonsillectomy XCAPSL CTRC RMVL INSJ IO LENS PROSTH W/O ECP Bilateral 2016 Cataract Extraction with PC IOL Family History: FAMILY HISTORY Problem Relation Age of Onset Heart Mother 76 heart attack and parkinsons Heart Father 78 of heart attack/ prostate cancer Heart Brother triple bypass at 65 Prostate Cancer Brother Prostate Cancer Brother Social History: Social History Tobacco Use Smoking status: Never Smokeless tobacco: Never Vaping Use Vaping Use: Never used Substance Use Topics Alcohol use: No Drug use: No Medications: Current Outpatient Medications Medication Sig ezetimibe (ZETIA) 10 mg tablet Take 1 tablet by mouth once daily. meloxicam (MOBIC) 15 mg tablet Take 1 tablet by mouth once daily. lisinopril (ZESTRIL, PRINIVIL) 40 mg tablet Take 1 tablet by mouth once daily. TURMERIC ORAL Take by mouth. Takes 1 tablet daily aspirin, enteric coated (ASPIRIN, ENTERIC COATED) 81 mg EC tablet Take 81 mg by mouth once daily. calcium carbonate-Vit D3-minerals (CALTRATE-600 PLUS VITAMIN D3) 600 mg calcium- 400 unit Tab Take 1 tablet by mouth twice daily. Marquand-3 Fatty Acids (FISH OIL) 500 mg cap Take 1 capsule by mouth once daily. THERAPEUTIC MULTIVITAMIN TAB Take one(1) tablet daily. No current facility-administered medications for this visit. Allergies: Crestor [Rosuvastatin Calcium], Septra [Sulfamethoxazole-Trimethoprim], Simvastatin, and Wuawivj-Gop-Pfs Reductase Inhibitors ROS: General: negative for fatigue, malaise, weight loss/gain Musculoskeletal: see HPI Psych: no depression, anxiety OBJECTIVE: Ms. Sneha Pak is a pleasant 77 year old in no apparent distress. Gen:There were no vitals taken for this visit. nl development, non obese, no deformities ENT: Normocephalic, normal hearing, moist mucosa CV: Pulses:DP/PT= 2+ and symmetric, capillary refill < 2 secs, no peripheral edema/varicosities Skin: no rash, bruising or lesions. Good turgor. Psych: cooperative and appropriate, alert and oriented x 3, good mood and affect. Musculoskeletal: Right knee, bilateral hips and ankles FROM without pain or limitation. 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 PATELLOFEMORAL DEGENERATIVE CHANGES ARE UNCHANGED. Braker Passenger Train: PSCLinda Transcribe Date/Time: Jul 08 2023 2:47P Dictated by : BRIANDA ALVARADO MD This examination was interpreted and the report reviewed and electronically signed by: BRIANDA ALVARADO MD on Jul 08 2023 2:49PM EST Results-Findings * * *Final Report* * * DATE OF EXAM: Jul 06 2023 9:00AM WOX [id number] - XR KNEE 4V AP/PA BOTH+LAT/PHILLIP LT / PROCEDURE REASON: Acute pain of left knee * * * * Physician Interpretation * * * * HISTORY: 7 (more content not included)... [facility] 08-21-2023 Note HNO ID: [id number] Author: Zane Galvan, DO Service: ? Author Type: Physician Type: Progress Notes Filed: 08/21/2023 5:40 PM Note Text: CC: Sneha Pak is a 77 year old female who presents to the office for follow up HPI: Vaginal bleeding episode, pink discharge, no pelvic pain or pressure, no urinary symptoms, occurred about 10 days ago. No known injuries. No hx of uterine surgery in the past. Has had a tubal ligation >30 years ago. 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 Vasovagal syncope PAST SURGICAL HISTORY Procedure Laterality Date COLONOSCOPY FLX DX W/COLLJ SPEC WHEN PFRMD 06-29-15 COLSC FLX W/RMVL OF TUMOR POLYP LESION SNARE TQ 08/22/10 LAPAROSCOPIC APPENDECTOMY 12-22-13 LIG/TRNSXJ FLP TUBE ABDL/VAG APPR UNI/BI 1976 Tubal ligation PAST SURGICAL HISTORY OF 2014 Bowel obstruction TONSILLECTOMY PRIMARY/SECONDARY Tonsillectomy XCAPSL CTRC RMVL INSJ IO LENS PROSTH W/O ECP Bilateral 2016 Cataract Extraction with PC IOL Social History: Social History Tobacco Use Smoking status: Never Smokeless tobacco: Never Vaping Use Vaping Use: Never used Substance Use Topics Alcohol use: No Drug use: No FAMILY HISTORY Problem Relation Age of Onset Heart Mother 76 heart attack and parkinsons Heart Father 78 of heart attack/ prostate cancer Heart Brother triple bypass at 65 Prostate Cancer Brother Prostate Cancer Brother Current Outpatient prescriptions: ezetimibe (ZETIA) 10 mg tablet Take 1 tablet by mouth once daily. meloxicam (MOBIC) 15 mg tablet Take 1 tablet by mouth once daily. lisinopril (ZESTRIL, PRINIVIL) 40 mg tablet Take 1 tablet by mouth once daily. TURMERIC ORAL Take by mouth. Takes 1 tablet daily aspirin, enteric coated (ASPIRIN, ENTERIC COATED) 81 mg EC tablet Take 81 mg by mouth once daily. calcium carbonate-Vit D3-minerals (CALTRATE-600 PLUS VITAMIN D3) 600 mg calcium- 400 unit Tab Take 1 tablet by mouth twice daily. Marquand-3 Fatty Acids (FISH OIL) 500 mg cap Take 1 capsule by mouth once daily. THERAPEUTIC MULTIVITAMIN TAB Take one(1) tablet daily. Allergies: ALLERGIES Allergen Reactions Crestor [Rosuvastat* Intolerance Septra [Sulfamethox* Hives Simvastatin Intolerance Ojvmvbt-Enz-Ugy Red* Myalgia ROS: See HPI PE: 08/21/23 0913 BP: 136/80 Pulse: 80 Resp: 16 Temp: 36.7 ?C (98.1 ?F) TempSrc: Left Tympanic Weight: 59 kg (130 lb) Height: 153 cm (5' 0.24 ) Gen: AANDO, NAD, non-toxic appearing, Pleasant, cooperative HEENT: NT/AC, PERRLA, EOMs intact b/l, nares clear and patent b/l, pharynx without erythema, exudate or lesions. Uvula midline. MMM, EACs without erythema or debris. TMs pearly weir with intact landmarks b/l. Neck: supple, No cervical LAD, no thyromegaly, no carotid bruits CV: RRR, normal S1 and S2, no murmurs, no gallops, no rubs, Pulses 2+ and symmetric in UE and LE b/l Lungs: normal respiratory effort, CTA b/l, no wheezing or rhonchi or rales Abd: soft, NT, ND, +BS, no hepatosplenomegaly MS: FROM all 4 extremities Neuro: CN II-XII intact b/l, strength 5/5 b/l UE and LE, DTRs 2/4 UE and LE, sensation intact. Skin: warm, dry, intact, No rashes or lesions on exposed skin. No edema, normal pulses ASSESSMENT/PLAN: 1. Vaginal bleeding - ICD9: 623.8, ICD10: N93.9 (primary diagnosis) US pelvis as ordered, will need DIRECTOR REGULATORY AFFAIRS exam and further testing as d/w her today - US FEMALE PELVIS TRANSVAG - US FEMALE PELVIS TRANSABD LTD 2. IFG (impaired fasting glucose) - ICD9: 790.21, ICD10: R73.01 Diet controlled, recheck labs 3. Dyslipidemia - ICD9: 272.4, ICD10: E78.5 - Controlled - Continue current medications - Counseled on healthy diet and regular exercise 4. Vitamin D deficiency - ICD9: 268.9, ICD10: E55.9 Continue supplement 5. Essential hypertension, benign - ICD9: 401.1, ICD10: I10 - Controlled - Continue current medications - Recommend home blood pressure monitoring, to bring results to next visit - Encouraged sodium restriction, DASH or Mediterranean diet - Recommend regular aerobic exercise - Discussed need for and benefit of weight loss. BMI 25.19 kg/(m2) 6. Borderline abnormal TFTs - ICD9: 794.5, ICD10: R94.6 stable Zane Galvan DO To ER if develops chest pain, shortness of breath, or severe worsening of symptoms. Discussed risks, benefits, alternatives, and potential side effects of medications. Patient expressed understanding and agreed with the plan. Zane Galvan DO [address] [place] [address] [facility] 08-21-2023 History of Present illness Narrative CC: Sneha Pak is a 77 year old female who presents to the office for follow up HPI: Vaginal bleeding episode, pink discharge, no pelvic pain or pressure, no urinary symptoms, occurred about 10 days ago. No known injuries. No hx of uterine surgery in the past. Has had a tubal ligation >30 years ago. 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 Vasovagal syncope PAST SURGICAL HISTORY Procedure Laterality Date COLONOSCOPY FLX DX W/COLLJ SPEC WHEN PFRMD 06-29-15 COLSC FLX W/RMVL OF TUMOR POLYP LESION SNARE TQ 08/22/10 LAPAROSCOPIC APPENDECTOMY 12-22-13 LIG/TRNSXJ FLP TUBE ABDL/VAG APPR UNI/BI 1976 Tubal ligation PAST SURGICAL HISTORY OF 2014 Bowel obstruction TONSILLECTOMY PRIMARY/SECONDARY <AGE 11 Tonsillectomy XCAPSL CTRC RMVL INSJ IO LENS PROSTH W/O ECP Bilateral 2016 Cataract Extraction with PC IOL Social History: Social History Tobacco Use Smoking status: Never Smokeless tobacco: Never Vaping Use Vaping Use: Never used Substance Use Topics Alcohol use: No Drug use: No FAMILY HISTORY Problem Relation Age of Onset Heart Mother 76 heart attack and parkinsons Heart Father 78 of heart attack/ prostate cancer Heart Brother triple bypass at 65 Prostate Cancer Brother Prostate Cancer Brother Current Outpatient prescriptions: ezetimibe (ZETIA) 10 mg tablet Take 1 tablet by mouth once daily. meloxicam (MOBIC) 15 mg tablet Take 1 tablet by mouth once daily. lisinopril (ZESTRIL, PRINIVIL) 40 mg tablet Take 1 tablet by mouth once daily. TURMERIC ORAL Take by mouth. Takes 1 tablet daily aspirin, enteric coated (ASPIRIN, ENTERIC COATED) 81 mg EC tablet Take 81 mg by mouth once daily. calcium carbonate-Vit D3-minerals (CALTRATE-600 PLUS VITAMIN D3) 600 mg calcium- 400 unit Tab Take 1 tablet by mouth twice daily. Marquand-3 Fatty Acids (FISH OIL) 500 mg cap Take 1 capsule by mouth once daily. THERAPEUTIC MULTIVITAMIN TAB Take one(1) tablet daily. Allergies: ALLERGIES Allergen Reactions Crestor [Rosuvastat* Intolerance Septra [Sulfamethox* Hives Simvastatin Intolerance Vtzzpfp-All-Ocs Red* Myalgia ROS: See HPI PE: 08/21/23 0913 BP: 136/80 Pulse: 80 Resp: 16 Temp: 36.7 C (98.1 F) TempSrc: Left Tympanic Weight: 59 kg (130 lb) Height: 153 cm (5' 0.24 ) Gen: A&O, NAD, non-toxic appearing, Pleasant, cooperative HEENT: NT/AC, PERRLA, EOMs intact b/l, nares clear and patent b/l, pharynx without erythema, exudate or lesions. Uvula midline. MMM, EACs without erythema or debris. TMs pearly weir with intact landmarks b/l. Neck: supple, No cervical LAD, no thyromegaly, no carotid bruits CV: RRR, normal S1 and S2, no murmurs, no gallops, no rubs, Pulses 2+ and symmetric in UE and LE b/l Lungs: normal respiratory effort, CTA b/l, no wheezing or rhonchi or rales Abd: soft, NT, ND, +BS, no hepatosplenomegaly MS: FROM all 4 extremities Neuro: CN II-XII intact b/l, strength 5/5 b/l UE and LE, DTRs 2/4 UE and LE, sensation intact. Skin: warm, dry, intact, No rashes or lesions on exposed skin. No edema, normal pulses ASSESSMENT/PLAN: 1. Vaginal bleeding - ICD9: 623.8, ICD10: N93.9 (primary diagnosis) US pelvis as ordered, will need DIRECTOR REGULATORY AFFAIRS exam and further testing as d/w her today - US FEMALE PELVIS TRANSVAG - US FEMALE PELVIS TRANSABD LTD 2. IFG (impaired fasting glucose) - ICD9: 790.21, ICD10: R73.01 Diet controlled, recheck labs 3. Dyslipidemia - ICD9: 272.4, ICD10: E78.5 - Controlled - Continue current medications - Counseled on healthy diet and regular exercise 4. Vitamin D deficiency - ICD9: 268.9, ICD10: E55.9 Continue supplement 5. Essential hypertension, benign - ICD9: 401.1, ICD10: I10 - Controlled - Continue current medications - Recommend home blood pressure monitoring, to bring results to next visit - Encouraged sodium restriction, DASH or Mediterranean diet - Recommend regular aerobic exercise - Discussed need for and benefit of weight loss. BMI 25.19 kg/(m^2) 6. Borderline abnormal TFTs - ICD9: 794.5, ICD10: R94.6 stable Zane Galvan DO To ER if develops chest pain, shortness of breath, or severe worsening of symptoms. Discussed risks, benefits, alternatives, and potential side effects of medications. Patient expressed understanding and agreed with the plan. Zane Galvan DO [address] [place] [address] documented in this encounter [facility] 08-12-2023 Miscellaneous Notes Noted. Paulina Lyle APRN.CNP Patient noted bright red blood on panty liner last night. Happened only one time. No other concerns. Protocol recommends see provider in 2 weeks. Patient has physical scheduled 08-21-23 and plans to talk to pcp about it then. Reason for Disposition Postmenopausal vaginal bleeding Answer Assessment - Initial Assessment Questions 1. AMOUNT: Patient is postmenapausal. Noted bright red blood on panty liner, last night. Filled up panty liner. Only happened 1 time. 2. ONSET: Happened one time last night. Has not noticed before or since. 3. MENOPAUSE: Doesn't remember, so long ago. 4. ABDOMINAL PAIN: No 5. BLOOD THINNERS: One baby asa daily. 6. HORMONES: No 7. CAUSE: Is still sexually active (last time a couple days before) Nothing unusal happened. Has no idea what could have triggered the bleed. No heavy lifting. 8. HEMODYNAMIC STATUS: No weakness or lightheaded. Walking normally. Feels fine. 9. OTHER SYMPTOMS: No back pain. No burning with urination. No fever. No vaginal soreness. Protocols used: Vaginal Bleeding - Hbzvmtgayohxsf-MBOHF-CP documented in this encounter [facility] 07-09-2023 Miscellaneous Notes Pt called and is notified of providers results and instructions. Pt voices understanding. Pt will call back in to schedule as she is on the road. Adeline Mary RN Please let patient know her xray shows worsening degeneration of her knee joint. I have placed a consult to ortho. documented in this encounter [facility] 07-06-2023 Note HNO ID: [id number] Author: Sofya Bradley RT(R) Service: ? Author Type: Cotton Roll Packer Type: Progress Notes Filed: 07/06/2023 8:59 AM Note Text: Radiology Service Progress Note PATIENT NAME: Sneha Pak DATE OF SERVICE: July 06, 2023 TIME: 8:44 AM PATIENT IDENTITY VERIFICATION COMPLETED USING TWO (2) IDENTIFIERS: Name and Date of confirmed by patient verbally. FALL SCREENING: Has the patient had 2 falls in the last year or 1 fall with injury or currently using an Ambulatory Assistive Device (Walker, Cane, Wheelchair, Crutches, etc.)? No PATIENT GENDER DATA: Female. status: : No status: NO. PATIENT RELEVANT IMPLANT DATA REVIEWED: Yes RADIOLOGY DEPARTMENT: General X-ray: Exam(s) Completed: Lower Extremity X-Ray(s): Knee, AP / Lat / Tunne / Merchant Left PERIPHERAL IV DATA: Not applicable SIGNED BY: RT Ariel(R) July 06, 2023 8:44 AM [facility] 07-06-2023 Note HNO ID: [id number] Author: Jordyn Lira APRN.WASH TUB MACHINE OPERATOR Service: ? Author Type: Nurse Practitioner Type: Progress Notes Filed: 07/06/2023 8:39 AM Note Text: Chief Complaint Patient presents with: Knee Pain: X 1 week HPI Sneha Pak is a 77 year old female who presents here today for Above Complaints.. Patient presents for left knee pain. Patient reports she has chronic knee pain but lately it has been worsening. Patient reports she has had stiffness and limited ROM. Past medical history, appointments, medications, allergies reviewed. 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 Vasovagal syncope Previous Surgical History PAST SURGICAL HISTORY Procedure Laterality Date COLONOSCOPY FLX DX W/COLLJ SPEC WHEN PFRMD 06-29-15 COLSC FLX W/RMVL OF TUMOR POLYP LESION SNARE TQ 08/22/10 LAPAROSCOPIC APPENDECTOMY 12-22-13 LIG/TRNSXJ FLP TUBE ABDL/VAG APPR UNI/BI 1976 Tubal ligation PAST SURGICAL HISTORY OF 2014 Bowel obstruction TONSILLECTOMY PRIMARY/SECONDARY Tonsillectomy XCAPSL CTRC RMVL INSJ IO LENS PROSTH W/O ECP Bilateral 2016 Cataract Extraction with PC IOL Family History FAMILY HISTORY Problem Relation Age of Onset Heart Mother 76 heart attack and parkinsons Heart Father 78 of heart attack/ prostate cancer Heart Brother triple bypass at 65 Prostate Cancer Brother Prostate Cancer Brother Patient Allergies ALLERGIES Allergen Reactions Crestor [Rosuvastat* Intolerance Septra [Sulfamethox* Hives Simvastatin Intolerance Zrlnmwc-Xje-Vkh Red* Myalgia Current Medications Current Outpatient Medications on File Prior to Visit Medication Sig meloxicam (MOBIC) 15 mg tablet Take 1 tablet by mouth once daily. ezetimibe (ZETIA) 10 mg tablet Take 1 tablet by mouth once daily. lisinopril (ZESTRIL, PRINIVIL) 40 mg tablet Take 1 tablet by mouth once daily. TURMERIC ORAL Take by mouth. Takes 1 tablet daily aspirin, enteric coated (ASPIRIN, ENTERIC COATED) 81 mg EC tablet Take 81 mg by mouth once daily. calcium carbonate-Vit D3-minerals (CALTRATE-600 PLUS VITAMIN D3) 600 mg calcium- 400 unit Tab Take 1 tablet by mouth twice daily. Marquand-3 Fatty Acids (FISH OIL) 500 mg cap Take 1 capsule by mouth once daily. THERAPEUTIC MULTIVITAMIN TAB Take one(1) tablet daily. No current facility-administered medications on file prior to visit. Social History Social History Tobacco Use Smoking status: Never Smokeless tobacco: Never Vaping Use Vaping Use: Never used Substance Use Topics Alcohol use: No Drug use: No Review of Symptoms REVIEW OF SYSTEMS SEE HPI EXAM: BP 120/70 Pulse 84 Resp 16 Wt 59 kg (130 lb) BMI 24.58 kg/m? General Appearance: Well appearing, alert, in no acute distress, well-hydrated, well nourished.. Extremities: Positive findings: joint location: on left knee pain, loss of ROM, and stiffness. Health Maintenance List HEPATITIS C SCREENING Never done DTAP,TDAP,TD(1 - Tdap) due on 10/24/2002 COVID-19 VACCINE(3 - Pfizer series) due on 04/10/2021 SHINGRIX VACCINE(3 of 3) due on 03/06/2023 INFLUENZA(1) due on 07/24/2023 BP CONTROLLED (<130/80) due on 08/20/2023 ANNUAL PCP TEAM CHRONIC DISEASE VISIT due on 02/18/2024 DIABETES SCREEN due on 08/20/2025 BONE DENSITY Completed DEPRESSION ASSESSMENT Completed PNEUMOCOCCAL: 65+ Completed COLORECTAL CANCER SCREENING Discontinued ADVANCE DIRECTIVE DISCUSSION Discontinued ASSESSMENT/PLAN: 1. Acute pain of left knee - ICD9: 719.46, ICD10: M25.562 - XR KNEE GENERAL 4V AP BOTH/PA BOTH/LAT/MERC LEFT - Encourage patient to take tylenol or ibuprofen for pain and stiffness. Jordyn Lira, LIVESTOCK BRANDS INSPECTOR.[facility] 07-06-2023 History of Present illness Narrative Chief Complaint Patient presents with: Knee Pain: X 1 week HPI Sneha Pak is a 77 year old female who presents here today for Above Complaints.. Patient presents for left knee pain. Patient reports she has chronic knee pain but lately it has been worsening. Patient reports she has had stiffness and limited ROM. Past medical history, appointments, medications, allergies reviewed. 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 Vasovagal syncope Previous Surgical History PAST SURGICAL HISTORY Procedure Laterality Date COLONOSCOPY FLX DX W/COLLJ SPEC WHEN PFRMD 06-29-15 COLSC FLX W/RMVL OF TUMOR POLYP LESION SNARE TQ 08/22/10 LAPAROSCOPIC APPENDECTOMY 12-22-13 LIG/TRNSXJ FLP TUBE ABDL/VAG APPR UNI/BI 1976 Tubal ligation PAST SURGICAL HISTORY OF 2014 Bowel obstruction TONSILLECTOMY PRIMARY/SECONDARY <AGE 11 Tonsillectomy XCAPSL CTRC RMVL INSJ IO LENS PROSTH W/O ECP Bilateral 2016 Cataract Extraction with PC IOL Family History FAMILY HISTORY Problem Relation Age of Onset Heart Mother 76 heart attack and parkinsons Heart Father 78 of heart attack/ prostate cancer Heart Brother triple bypass at 65 Prostate Cancer Brother Prostate Cancer Brother Patient Allergies ALLERGIES Allergen Reactions Crestor [Rosuvastat* Intolerance Septra [Sulfamethox* Hives Simvastatin Intolerance Jgxulyn-Ogd-Dvk Red* Myalgia Current Medications Current Outpatient Medications on File Prior to Visit Medication Sig meloxicam (MOBIC) 15 mg tablet Take 1 tablet by mouth once daily. ezetimibe (ZETIA) 10 mg tablet Take 1 tablet by mouth once daily. lisinopril (ZESTRIL, PRINIVIL) 40 mg tablet Take 1 tablet by mouth once daily. TURMERIC ORAL Take by mouth. Takes 1 tablet daily aspirin, enteric coated (ASPIRIN, ENTERIC COATED) 81 mg EC tablet Take 81 mg by mouth once daily. calcium carbonate-Vit D3-minerals (CALTRATE-600 PLUS VITAMIN D3) 600 mg calcium- 400 unit Tab Take 1 tablet by mouth twice daily. Marquand-3 Fatty Acids (FISH OIL) 500 mg cap Take 1 capsule by mouth once daily. THERAPEUTIC MULTIVITAMIN TAB Take one(1) tablet daily. No current facility-administered medications on file prior to visit. Social History Social History Tobacco Use Smoking status: Never Smokeless tobacco: Never Vaping Use Vaping Use: Never used Substance Use Topics Alcohol use: No Drug use: No Review of Symptoms REVIEW OF SYSTEMS SEE HPI EXAM: BP 120/70 Pulse 84 Resp 16 Wt 59 kg (130 lb) BMI 24.58 kg/m General Appearance: Well appearing, alert, in no acute distress, well-hydrated, well nourished.. Extremities: Positive findings: joint location: on left knee pain, loss of ROM, and stiffness. Health Maintenance List HEPATITIS C SCREENING Never done DTAP,TDAP,TD(1 - Tdap) due on 10/24/2002 COVID-19 VACCINE(3 - Pfizer series) due on 04/10/2021 SHINGRIX VACCINE(3 of 3) due on 03/06/2023 INFLUENZA(1) due on 07/24/2023 BP CONTROLLED (<130/80) due on 08/20/2023 ANNUAL PCP TEAM CHRONIC DISEASE VISIT due on 02/18/2024 DIABETES SCREEN due on 08/20/2025 BONE DENSITY Completed DEPRESSION ASSESSMENT Completed PNEUMOCOCCAL: 65+ Completed COLORECTAL CANCER SCREENING Discontinued ADVANCE DIRECTIVE DISCUSSION Discontinued ASSESSMENT/PLAN: 1. Acute pain of left knee - ICD9: 719.46, ICD10: M25.562 - XR KNEE GENERAL 4V AP BOTH/PA BOTH/LAT/MERC LEFT - Encourage patient to take tylenol or ibuprofen for pain and stiffness. Jordyn Lira APRN.WASH TUB MACHINE OPERATOR documented in this encounter [facility] 07-02-2023 Miscellaneous Notes Patient calling to request appt for 07/06/23 to evaluate her left knee. Appt made with Jordyn Lira CNP. Patient states she has had a spur to the back of her left knee for years . Reports it has recently caused more discomfort and knee feels a little more weaker at times when walking. Knee does not give out but feels like it may, at times. Pt reports she was on her legs more than usual yesterday and thinks that may be the reason she is having more discomfort today than she usually does. Pt states she will be going away next weekend and would like left knee evaluated before that. -rates left pain as mild -slight swelling to left knee -no increased warmth to left knee -no redness to left knee, left leg or foot -no numbness or tingling Pt aware to contact PCP office if sx's worsen. Will send message to Jordyn Lira CNP for update. Please contact patient if provider has other recommendations. Thank you. documented in this encounter [facility] 07-02-2023 Miscellaneous Notes Patient last visit 02/17/23 Follow up appointment scheduled 08/21/23 Patient has been identified by name and date of : Yes Requested Prescriptions Pending Prescriptions Disp Refills meloxicam (MOBIC) 15 mg tablet 90 tablet 3 Sig: Take 1 tablet by mouth once daily. RX INSTRUCTIONS: Patient aware RX will be sent to pharmacy. No need to notify patient. Elayne Gutiérrez documented in this encounter [facility] 02-17-2023 Note HNO ID: [id number] Author: Zane Galvan, DO Service: ? Author Type: Physician Type: Progress Notes Filed: 02/17/2023 9:50 AM Note Text: CC: Sneha Pak is a 77 year old female who presents to the office for 6 months follow up HPI: IFG, diet controlled, not wanting to be on medication, trying to stay physically active as well HTN, well controlled, check BLOOD PRESSURE weekly at home. Denies any dyspnea or dizziness/LH or leg edema or palpitations or chest pressure/pain, no headaches. 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 Vasovagal syncope PAST SURGICAL HISTORY Procedure Laterality Date COLONOSCOPY FLX DX W/COLLJ SPEC WHEN PFRMD 06-29-15 COLSC FLX W/RMVL OF TUMOR POLYP LESION SNARE TQ 08/22/10 LAPAROSCOPIC APPENDECTOMY 12-22-13 LIG/TRNSXJ FLP TUBE ABDL/VAG APPR UNI/BI 1976 Tubal ligation PAST SURGICAL HISTORY OF 2014 Bowel obstruction TONSILLECTOMY PRIMARY/SECONDARY Tonsillectomy XCAPSL CTRC RMVL INSJ IO LENS PROSTH W/O ECP Bilateral 2015 Cataract Extraction with PC IOL Current Outpatient Medications Medication Sig ezetimibe (ZETIA) 10 mg tablet Take 1 tablet by mouth once daily. lisinopril (ZESTRIL, PRINIVIL) 40 mg tablet Take 1 tablet by mouth once daily. meloxicam (MOBIC) 15 mg tablet Take 1 tablet by mouth once daily. TURMERIC ORAL Take by mouth. Takes 1 tablet daily aspirin, enteric coated (ASPIRIN, ENTERIC COATED) 81 mg EC tablet Take 81 mg by mouth once daily. calcium carbonate-Vit D3-minerals (CALTRATE-600 PLUS VITAMIN D3) 600 mg calcium- 400 unit Tab Take 1 tablet by mouth twice daily. Marquand-3 Fatty Acids (FISH OIL) 500 mg cap Take 1 capsule by mouth once daily. THERAPEUTIC MULTIVITAMIN TAB Take one(1) tablet daily. No current facility-administered medications for this visit. ALLERGIES Allergen Reactions Crestor [Rosuvastat* Intolerance Septra [Sulfamethox* Hives Simvastatin Intolerance Szlrkqc-Len-Mpf Red* Myalgia Social History Tobacco Use Smoking status: Never Smokeless tobacco: Never Vaping Use Vaping Use: Never used Substance Use Topics Alcohol use: No Drug use: No ROS: See HPI. PE: BP 130/80 Pulse 80 Temp (Src) 97 (Left Tympanic) Resp 16 Wt 127 lb (57.6kg) Gen: AANDOX3, NAD, non-toxic appearing HEENT: PERRLA, EOMs intact b/l, nares without drainage, pharynx without erythema, exudate, lesions, or drainage. Uvula midline. Neck: No LAD, no thyromegaly, no meningismus. CV: RRR, no murmur, normal s1s2 Lungs: CTA b/l, no wheezing Skin: No rashes, lesions, or wounds on exposed skin. Arthritis changes of hands and knees without effusion but with joint line TTP No edema, normal pulses ASSESSMENT/PLAN: 1. Vitamin D deficiency - ICD9: 268.9, ICD10: E55.9 (primary diagnosis) - recheck labs, continue supplement - VITAMIN D 25 HYDROXY 2. Dyslipidemia - ICD9: 272.4, ICD10: E78.5 - to be determined upon return of lab results - Encouraged following a low fat, low cholesterol diet. - Discussed the benefits of regular aerobic exercise. - Check fasting lipid panel - LIPID PANEL BASIC 3. IFG (impaired fasting glucose) - ICD9: 790.21, ICD10: R73.01 Recheck labs in 6 months, diet controlled, stable - HGB A1C - COMP METABOLIC PANEL - CBC - VITAMIN B12 BLOOD 4. Arthritis, multiple joint involvement - ICD9: 716.99, ICD10: M12.9 - stable, chronic, consider use of knee brace if needed. 5. Borderline abnormal TFTs - ICD9: 794.5, ICD10: R94.6 - recheck labs, not on medication - TSH BLD - T4 FREE/FREE THYROX Zane Galvan DO Return if no improvement. Follow up with Zane Galvan DO. To ER if develops chest pain, shortness of breath Discussed risks, benefits, alternatives, and potential side effects of medications. Patient/Guardian expressed understanding and agreed with the plan. See patient instructions. Zane Galvan DO [address] [place] [address] [facility] 02-17-2023 History of Present illness Narrative CC: Sneha Pak is a 77 year old female who presents to the office for 6 months follow up HPI: IFG, diet controlled, not wanting to be on medication, trying to stay physically active as well HTN, well controlled, check BLOOD PRESSURE weekly at home. Denies any dyspnea or dizziness/LH or leg edema or palpitations or chest pressure/pain, no headaches. 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 Vasovagal syncope PAST SURGICAL HISTORY Procedure Laterality Date COLONOSCOPY FLX DX W/COLLJ SPEC WHEN PFRMD 06-29-15 COLSC FLX W/RMVL OF TUMOR POLYP LESION SNARE TQ 08/22/10 LAPAROSCOPIC APPENDECTOMY 12-22-13 LIG/TRNSXJ FLP TUBE ABDL/VAG APPR UNI/BI 1976 Tubal ligation PAST SURGICAL HISTORY OF 2014 Bowel obstruction TONSILLECTOMY PRIMARY/SECONDARY <AGE 11 Tonsillectomy XCAPSL CTRC RMVL INSJ IO LENS PROSTH W/O ECP Bilateral 2016 Cataract Extraction with PC IOL Current Outpatient Medications Medication Sig ezetimibe (ZETIA) 10 mg tablet Take 1 tablet by mouth once daily. lisinopril (ZESTRIL, PRINIVIL) 40 mg tablet Take 1 tablet by mouth once daily. meloxicam (MOBIC) 15 mg tablet Take 1 tablet by mouth once daily. TURMERIC ORAL Take by mouth. Takes 1 tablet daily aspirin, enteric coated (ASPIRIN, ENTERIC COATED) 81 mg EC tablet Take 81 mg by mouth once daily. calcium carbonate-Vit D3-minerals (CALTRATE-600 PLUS VITAMIN D3) 600 mg calcium- 400 unit Tab Take 1 tablet by mouth twice daily. Marquand-3 Fatty Acids (FISH OIL) 500 mg cap Take 1 capsule by mouth once daily. THERAPEUTIC MULTIVITAMIN TAB Take one(1) tablet daily. No current facility-administered medications for this visit. ALLERGIES Allergen Reactions Crestor [Rosuvastat* Intolerance Septra [Sulfamethox* Hives Simvastatin Intolerance Bdhxavt-Hxu-Buv Red* Myalgia Social History Tobacco Use Smoking status: Never Smokeless tobacco: Never Vaping Use Vaping Use: Never used Substance Use Topics Alcohol use: No Drug use: No ROS: See HPI. PE: BP 130/80 Pulse 80 Temp (Src) 97 (Left Tympanic) Resp 16 Wt 127 lb (57.6kg) Gen: A&OX3, NAD, non-toxic appearing HEENT: PERRLA, EOMs intact b/l, nares without drainage, pharynx without erythema, exudate, lesions, or drainage. Uvula midline. Neck: No LAD, no thyromegaly, no meningismus. CV: RRR, no murmur, normal s1s2 Lungs: CTA b/l, no wheezing Skin: No rashes, lesions, or wounds on exposed skin. Arthritis changes of hands and knees without effusion but with joint line TTP No edema, normal pulses ASSESSMENT/PLAN: 1. Vitamin D deficiency - ICD9: 268.9, ICD10: E55.9 (primary diagnosis) - recheck labs, continue supplement - VITAMIN D 25 HYDROXY 2. Dyslipidemia - ICD9: 272.4, ICD10: E78.5 - to be determined upon return of lab results - Encouraged following a low fat, low cholesterol diet. - Discussed the benefits of regular aerobic exercise. - Check fasting lipid panel - LIPID PANEL BASIC 3. IFG (impaired fasting glucose) - ICD9: 790.21, ICD10: R73.01 Recheck labs in 6 months, diet controlled, stable - HGB A1C - COMP METABOLIC PANEL - CBC - VITAMIN B12 BLOOD 4. Arthritis, multiple joint involvement - ICD9: 716.99, ICD10: M12.9 - stable, chronic, consider use of knee brace if needed. 5. Borderline abnormal TFTs - ICD9: 794.5, ICD10: R94.6 - recheck labs, not on medication - TSH BLD - T4 FREE/FREE THYROX Zane Galvan DO Return if no improvement. Follow up with Zane Galvan DO. To ER if develops chest pain, shortness of breath Discussed risks, benefits, alternatives, and potential side effects of medications. Patient/Guardian expressed understanding and agreed with the plan. See patient instructions. Zane Galvan DO [address] [place] [address] documented in this encounter [facility] 01-20-2023 Miscellaneous Notes Patient has been identified by name and date of : Yes Requested Prescriptions Pending Prescriptions Disp Refills ezetimibe (ZETIA) 10 mg tablet 90 tablet 1 Sig: Take 1 tablet by mouth once daily. lisinopril (ZESTRIL, PRINIVIL) 40 mg tablet 90 tablet 3 Sig: Take 1 tablet by mouth once daily. EARL-08/20/22 Labs-08/20/22 NOV-02/17/23 RX INSTRUCTIONS: Patient aware RX will be sent to pharmacy. No need to notify patient. Elayne Jacob Pss documented in this encounter [facility] 08-22-2022 Miscellaneous Notes Patient notified and voiced her understanding. Message left with patient to contact office for results Claribel Morataya Ma Please call patient and let her know that blood work results are back and look great! hgA1c is stable and exactly the same at 11 months ago -- 5.7. Lipid panel remains stable as well. Continue Zetia 10 mg daily. Routine exercise and a diet high green leafy vegetables and lean protein will help lower this value. Thank you, Paulina Parra APRN.WASH TUB MACHINE OPERATOR documented in this encounter [facility] 07-07-2022 Miscellaneous Notes Patient has been identified by name and date of : Yes Requested Prescriptions Pending Prescriptions Disp Refills ezetimibe (ZETIA) 10 mg tablet 90 tablet 1 Sig: Take 1 tablet by mouth once daily. RX INSTRUCTIONS: Patient aware RX will be sent to pharmacy. No need to notify patient. Rosie Corral MA Earl: 11/2021 Nov: 07/2022 Last refill: 11/2021 Patient has been identified by name and date of : Yes Requested Prescriptions Pending Prescriptions Disp Refills ezetimibe (ZETIA) 10 mg tablet 90 tablet 1 Sig: Take 1 tablet by mouth once daily. RX INSTRUCTIONS: Patient aware RX will be sent to pharmacy. No need to notify patient. Ju Cerda Pss] documented in this encounter [facility] 07-03-2022 Miscellaneous Notes Patient has been identified by name and date of : Yes Pharmacy phones for refill(s): Requested Prescriptions Pending Prescriptions Disp Refills meloxicam (MOBIC) 15 mg tablet 90 tablet 3 Sig: Take 1 tablet by mouth once daily. Date of last office visit in primary care: 11/26/21 Future visit: 08/20/22 Last 2 Encounter Wt Readings: Date: Wt: 11/26/2021 54.9 kg (121 lb) 09/25/2021 53.5 kg (118 lb) Previous labs/tests for medication: Blood Pressure: BUN (mg/dL) Date Value 09/25/2021 22 Sodium (mmol/L) Date Value 09/25/2021 139 Last 1 Encounter BP Readings: Date: BP: 11/26/2021 156/70 Liver Function: ALT (U/L) Date Value 09/25/2021 25 AST (U/L) Date Value 09/25/2021 27 Please advise. Thank you. Adeline Mary RN documented in this encounter [facility] documented as of this encounter (statuses as of 07/03/2022) [facility] History of Past illness Narrative* Problem Noted Date Resolved Date Transient alteration of awareness 11/27/2021 05/04/2022 documented as of this encounter (statuses as of 07/07/2022) [facility] History of Past illness Narrative* Problem Noted Date Resolved Date Transient alteration of awareness 11/27/2021 05/04/2022 documented as of this encounter (statuses as of 08/22/2022) [address]22 History of Past illness Narrative* Problem Noted Date Resolved Date Transient alteration of awareness 11/27/2021 05/04/2022 documented as of this encounter (statuses as of 01/21/2023) [address]22 History of Past illness Narrative* Problem Noted Date Resolved Date Transient alteration of awareness 11/27/2021 05/04/2022 documented as of this encounter (statuses as of 02/17/2023) [address]22 History of Past illness Narrative* Problem Noted Date Diagnosed Date Resolved Date Transient alteration of awareness 11/27/2021 05/04/2022 documented as of this encounter (statuses as of 07/03/2023) [address]22 History of Past illness Narrative* Problem Noted Date Diagnosed Date Resolved Date Transient alteration of awareness 11/27/2021 05/04/2022 documented as of this encounter (statuses as of 07/06/2023) [address]22 History of Past illness Narrative* Problem Noted Date Diagnosed Date Resolved Date Transient alteration of awareness 11/27/2021 05/04/2022 documented as of this encounter (statuses as of 07/09/2023) [address]22 History of Past illness Narrative* Problem Noted Date Diagnosed Date Resolved Date Transient alteration of awareness 11/27/2021 05/04/2022 documented as of this encounter (statuses as of 08/13/2023) [address]22 History of Past illness Narrative* Problem Noted Date Diagnosed Date Resolved Date Transient alteration of awareness 11/27/2021 05/04/2022 documented as of this encounter (statuses as of 08/22/2023) [address]22 History of Past illness Narrative* Problem Noted Date Diagnosed Date Resolved Date Transient alteration of awareness 11/27/2021 05/04/2022 documented as of this encounter (statuses as of 09/02/2023) [address]22 History of Past illness Narrative* Problem Noted Date Diagnosed Date Resolved Date Transient alteration of awareness 11/27/2021 05/04/2022 documented as of this encounter (statuses as of 09/10/2023) [address] History of Past illness Narrative* Problem Noted Date Diagnosed Date Resolved Date Transient alteration of awareness 11/27/2021 05/04/2022 documented as of this encounter (statuses as of 09/17/2023) [facility] History of Past illness Narrative* Problem Noted Date Diagnosed Date Resolved Date Transient alteration of awareness 11/27/2021 05/04/2022 documented as of this encounter (statuses as of 09/29/2023) [facility] History of Past illness Narrative* Problem Noted Date Diagnosed Date Resolved Date Transient alteration of awareness 11/27/2021 05/04/2022 documented as of this encounter (statuses as of 10/14/2023) [facility] History of Past illness Narrative* Problem Noted Date Diagnosed Date Resolved Date Transient alteration of awareness 11/27/2021 05/04/2022 documented as of this encounter (statuses as of 10/20/2023) [facility] History of Past illness Narrative* Problem Noted Date Diagnosed Date Resolved Date Transient alteration of awareness 11/27/2021 05/04/2022 documented as of this encounter (statuses as of 10/22/2023) [facility] History of Past illness Narrative* Problem Noted Date Diagnosed Date Resolved Date Transient alteration of awareness 11/27/2021 05/04/2022 documented as of this encounter (statuses as of 10/22/2023) [facility] History of Past illness Narrative* Problem Noted Date Diagnosed Date Resolved Date Transient alteration of awareness 11/27/2021 05/04/2022 documented as of this encounter (statuses as of 11/13/2023) [facility] History of Present illness Narrative* Adrian Bustamante MD - 03/19/2021 3:30 PM EDT HPI: Patient is here today to be evaluated for left knee pain. She is a pleasant 75 y.o. female. Primary complaint is pain and discomfort. She has experienced a progressive decline in physical function and quality of life secondary to the discomfort in the left knee. For today, she denies pain. Shereports she takes Mobic daily and has not attempted injections or physical therapy to date. She is here today for evaluation to [facility] care. She desires no treatment today. PHYSICAL EXAM: This is an alert, oriented, and age-appropriate female. She is in no distress. Pleasant and cooperative. EXTREMITIES: The lower extremities have no gross deformities. Normal stability.Skin Intact. 5/5 motor. Intact sensation. Normal neurovascular status. Normal coordination. Range of motion upon exam today is 5-95. Fixed varus alignment. Crepitus throughout the arc of motion. Fullmotion of hip. No pain. No impingement. No instability. Contralateral leg has normal alignment. Full motion. No pain. No impingement. No instability. IMAGING: Plain film radiographs were reviewed. Long-standing films of mechanical axis that falls tothe medial compartment of the left knee. Multiple views of each knee demonstrate severe arthritis of the knee with loss of joint space, subchondral sclerosis, osteophyte formation, and pjpn-ol-sncw contact. IMPRESSION: Severe symptomatic end-stage arthritis, left knee. PLAN: I have reviewed my findings with patient. We have gone over the diagnosis and treatment and have talked about her options for management. Given her lack of symptoms today, no treatment is recommended. If her symptoms resume in the future, she will call my office for evaluation and injections and PT will be considered. All questions were answered today. She has no further questions. Next appointment will be left open to her. I have reviewed the findings of my clinical staff below and agree with their assessment. Vitals: 03/19/21 1533 Temp: 98.2 degrees F (36.8 degrees C) TempSrc: Temporal Weight: 54.1 kg (119 lb 3.2 oz) Height: 1.549 m (5' 1 ) Pain Presence of Pain: denies pain/discomfort Recent Labs No results found for: CRP No results found for: SEDRATE No results found for: WBC, WBCCOUNT, WBCFETAL, HGB, HCT, PLATELET, MCV Past Medical History: Diagnosis Date Essential hypertension, benign Hyperlipidemia Past Surgical History: Procedure Laterality Date APPENDECTOMY 2000 No family history on file. Social History Socioeconomic History Marital status: Spouse name: Not on file Number of children: Not on file Years of education: Not on file Highest education level: Not on file Occupational History Not on file Tobacco Use Smoking status: Never Smoker Smokeless tobacco: Never Used Substance and Sexual Activity Alcohol use: Never Drug use: Never Sexual activity: Not on file Other Topics Concern Not on file Social History Narrative Not on file Social Determinants of Health Financial Resource Strain: Difficulty of Paying Living Expenses: Not on file Food Insecurity: Worried About Running Out of Food in the Last Year: Not on file Ran Out of Food in the Last Year: Not on file Transportation Needs: Lack of Transportation (Medical): Not on file Lack of Transportation (Non-Medical): Not on file Physical Activity: Days of Exercise per Week: Not on file Minutes of Exercise per Session: Not on file Stress: Feeling of Stress : Not on file Social Connections: Frequency of Communication with Friends and Family: Not on file Frequency of Social Gatherings with Friends and Family: Not on file Attends Gnosticist Services: Not on file Active Member of Clubs or Organizations: Not on file Attends Club or Organization Meetings: Not on file Marital Status: Not on file Intimate Partner Violence: Fear of Current or Ex-Partner: Not on file Emotionally Abused: Not on file Physically Abused: Not on file Sexually Abused: Not on file Current Outpatient Medications: Aspirin [address] tablet, Take 81 mg by mouth daily., Disp: , Rfl: Calcium Carb-Cholecalciferol (Calcium 600+D) 600-800 MG-UNIT tablet, Take by mouth daily., Disp: , Rfl: ezetimibe 10 MG tablet, Take 10 mg by mouth daily., Disp: , Rfl: lisinopril 30 MG tablet, , Disp: , Rfl: meloxicam 15 MG tablet, Take 15 mg by mouth daily., Disp: , Rfl: multivitamin tablet, Take 1 tablet by mouth daily., Disp: , Rfl: Marquand-3 Fatty Acids (Fish Oil) [address], Take by mouth., Disp: , Rfl: No Known Allergies * Lexi Jackson LPN - 03/19/2021 3:30 PM EDT Ortho Nurse Patient Intake Room#: 1----Visit to evaluate left knee pain. Today she has no pain. She does take mobic every day.She has had no injection or PT. Date: 03/19/2021 3:40 PM Patient: Sneha Pak MR#: [id number] : 1945 Age: 75 y.o. Referring Physician: Self, Self Insurance: Payor: MEDICARE / Plan: MEDICARE A AND B / Product Type: *No Product type* / Chief Complaint Patient presents with Left Knee - Pain, New Patient Knee Pain Visit Vitals Temp 98.2 F (36.8 C) (Temporal) Ht 1.549 m (5' 1 ) Wt 54.1 kg (119 lb 3.2 oz) BMI 22.52 kg/m Pain Presence of Pain: denies pain/discomfort Recent Labs No results found for: CRP No results found for: SEDRATE No results found for: WBC, WBCCOUNT, WBCFETAL, HGB, HCT, PLATELET, MCV History Past Medical History: Diagnosis Date Essential hypertension, benign Hyperlipidemia Past Surgical History: Procedure Laterality Date APPENDECTOMY 2000 Family History: Her family history is not on file. Social History: Her reports that she has never smoked. She has never used smokeless tobacco. She reports that she does not drink alcohol and does not use drugs. Additional Social History Y N Notes Do you live alone? [] [x] Who lives with you: Do you have children? [x] [] How many: 3 Do you currently work? [] [x] What type of work do you do: Do you have stairs in the home? [x] [] How many do you have to climb to enter your home: 3 What services do you currently receive at home? [] [x] Name: Do you have transportation to go to outpatient therapy if needed? [x] [] What Equipment do you have at home? [x] [] [x]Walker, []Crutches, []Commode Chair, []Shower []Chair, []cane, []bracing Are you followed by a source inspector? [] [x] Name: Are you followed by pain management? [] [x] Name: Are you followed by any other specialists? [] [x] Name: Outpatient Medications Prior to Visit Medication Sig Dispense Refill Aspirin [address] tablet Take 81 mg by mouth daily. Calcium Carb-Cholecalciferol (Calcium 600+D) 600-800 MG-UNIT tablet Take by mouth daily. ezetimibe 10 MG tablet Take 10 mg by mouth daily. lisinopril 30 MG tablet meloxicam 15 MG tablet Take 15 mg by mouth daily. multivitamin tablet Take 1 tablet by mouth daily. Marquand-3 Fatty Acids (Fish Oil) [address] Take by mouth. No facility-administered medications prior to visit. Allergies: She has No Known Allergies. Y N Are you allergic to any metals? [] [x] If yes, what metals: Review of Systems System Y N Symptoms Constitutional [] [x] Weight Loss [] [x] Weight Gain [] [x] Chronic Fever [] [x] Insomnia Eyes [] [x] Resent Vision Change [] [x] Cataracts [] [x] Glaucoma [] [x] Any Hx of Metal Fragments in the Eye ENT [] [x] Loss of hearing [] [x] Hearing Aids [] [x] Seasonal Allergies [] [x] Dental Issues Cardiovascular [] [x] Chest Pain [] [x] Angina [] [x] Stent [x] [] Hypertension [] [x] Heart Murmur [] [x] Irregular Pulse [] [x] Pacemaker [] [x] Palpitations [x] [] High cholesteral Respiratory [] [x] Wheezing [] [x] Shortness of Breath [] [x] Pneumonia [] [x] Bronchitis [] [x] Sleep Apnea [] [x] COPD [] [x] Date/ LOC of last CXR: Gastrointestinal [] [x] Heartburn [] [x] Indigestion [] [x] Constipation [] [x] Ulcer [] [x] GI Stomach Bleed [] [x] Diarrhea [] [x] Colon Cancer [] [x] Acid Reflux [] [x] Blood in Stools Musculoskeletal [x] [x] Arthritis [] [x] Muscle Weakness [x] [] Joint Pain [] [x] Back Pain [] [x] Fibromyalgia [] [x] Bone Infection [] [x] Swelling Multiple Joints [] [x] Reflex Sympathetic Dystrophy Skin [] [x] Chronic Rash [] [x] Ulcers [] [x] Eczema [] [x] Psoriasis [] [x] Skin Cancer [] [x] Melanoma Neurologic [] [x] Numbness [] [x] Weakness or loss of sensation in arms or legs [] [x] Leg Pain / Sciatica [] [x] Headaches [] [x] Loss of bowel or bladder control Psychiatric [] [x] Anxiety [] [x] Claustrophobia [] [x] Other Psychiatric Problems Hematologic [] [x] Easy Bruising [] [x] Easy Bleeding [] [x] Blood Transfusion Date: Endocrine [] [x] Hypothyroid [] [x] Hyperthyroid [] [x] Hot Flashes [] [x] Hormone Replacement [] [x] Prednisone Use Does pt have dentures? no [facility] Diagnosis Left knee pain, unspecified chronicity- Primary documented in this encounter [facility] note* Diagnosis Essential hypertension, benign documented in this encounter [facility] note* Diagnosis Vitamin D deficiency- Primary Unspecified vitamin D deficiency Dyslipidemia Other and unspecified hyperlipidemia IFG (impaired fasting glucose) Impaired fasting glucose Arthritis, multiple joint involvement Unspecified arthropathy, multiple sites Borderline abnormal TFTs Nonspecific abnormal results of thyroid function study [facility] Diagnosis Acute pain of left knee- Primary [facility]* Diagnosis Vaginal bleeding- Primary Other specified noninflammatory disorder of vagina IFG (impaired fasting glucose) Impaired fasting glucose Dyslipidemia Other and unspecified hyperlipidemia Vitamin D deficiency Unspecified vitamin D deficiency Essential hypertension, benign Borderline abnormal TFTs Nonspecific abnormal results of thyroid function study [facility] Diagnosis Vaginal bleeding- Primary Other specified noninflammatory disorder of vagina [facility]* Diagnosis Postmenopausal bleeding- Primary Vaginal atrophy Postmenopausal atrophic vaginitis [facility]* Diagnosis Postmenopausal bleeding- Primary documented in this encounter [facility] for referral (narrative)* Diagnostic Procedure Only (Routine) - Closed Specialty Diagnoses / Procedures Referred By Contac t Referred To Contact XR IMAGING Diagnoses Acute pain of left knee Procedures XR KNEE GENERAL 4V AP BOTH/PA BOTH/LAT/MERC LEFT RADIOLOGIC EXAM KNEE COMPLETE 4/MORE VIEWS Jordyn Lira, ATIF.WASH TUB MACHINE OPERATOR [address] [place] [address] Xr Imaging Referral ID Status Reason Start Date Expiration Date V isits Requested Visits Authorized [id number] Closed Auto-Generate d Referral 07/06/2023 08/04/2024 1 1 [facility] for referral (narrative)* Diagnostic Procedure Only (Routine) - Authorized Specialty Diagnoses / Procedures Referred By Contac t Referred To Contact US IMAGING Diagnoses Vaginal bleeding Procedures US FEMALE PELVIS TRANSABD LTD US PELVIC NONOBSTETRIC IMAGE DCMTN LIMITED/F/U Zane Galvan, DO [address] [id number] [place] [address] Referral ID Status Reason Start Date Expiration Date Visits Requested Visits Authorized [id number] Authorized Auto-Generat ed Referral 08/21/2023 09/19/2024 1 1 * Diagnostic Procedure Only (Routine) - Authorized Specialty Diagnoses / Procedures Referred By Contac t Referred To Contact US IMAGING Diagnoses Vaginal bleeding Procedures US FEMALE PELVIS TRANSVAG US TRANSVAGINAL Zane Galvan, DO [address] [place] [address] [place] [address] Referral ID Status Reason Start Date Expiration Date Visits Requested Visits Authorized [id number] Authorized Auto-Generat ed Referral 08/21/2023 09/19/2024 1 1 [facility] for referral (narrative)* Outpatient Procedure (Routine) - Pending Review Specialty Diagnoses / Procedures Referred By Contac t Referred To Contact [facility] Diagnoses Postmenopausal bleeding Procedures ENDOMETRIAL BIOPSY ENDOMETRIAL BX W/WO ENDOCERVIX BX W/O DILAT SPX Sofia Saleem APRN.CNP [address] [address] [facility] [address] [place] [address] Referral ID Status Reason Start Date Expiration Date Visits Requested Visits Authorized [id number] Pending Review Auto-Generat ed Referral 3 10/18/2024 1 1 [facility] Reason for Referral Status Reason Specialty Diagnoses / Procedures Referred By Contact Referred To Contact Pending Review Diagnoses Left knee pain, unspecified chronicity Procedures XR BONE LENGTH STUDY Adrian Bustamante MD [address] [place] [id number] Status Reason Specialty Diagnoses / Procedures Referred By Contact Referred To Contact Pending Review Diagnoses Left knee pain, unspecified chronicity Procedures XR KNEE LEFT 4+ VIEWS Adrian Bustamante MD [address] [place] [phone] Specialty Diagnoses / Procedures Referred By Contac t Referred To Contact Orthopedics Diagnoses Acute pain of left knee Procedures CONSULT TO ORTHOPAEDICS OFFICE/OUTPATIENT [facility] 60-74 MINUTES Jordyn Lira APRN.CNP [address] [phone] Referral ID Status Reason Start Date Expiration Date Visits Requested Visits Authorized [id number] Pending Review PCP Requested Referral 07/09/2023 07/08/2024 1 1 Specialty Diagnoses / Procedures Referred By Contac t Referred To Contact Gynecology Diagnoses Vaginal bleeding Procedures CONSULT TO GYNECOLOGY OFFICE/OUTPATIENT [facility] 60-74 MINUTES Zane Galvan, [address] [place] [address] Referral ID Status Reason Start Date Expiration Date Visits Requested Visits Authorized [id number] Pending Review PCP Requested Referral Auto-Generate d Referral 3 09/08/2024 1 1 Summary Purpose Family History No Family History Records FoundNo Family History Records FoundNo Family History Records Found Advance Directives No Advanced Directives Records FoundDocuments on File Type Date Recorded 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 Advance Directive(s) 08/21/2022 8:56 AM Documents on File Type Date Recorded 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 Advance Directive(s) 08/21/2022 8:56 AM Additional Source Comments Reason for Visit (unrecogniz ed section and content) Specialty Diagnoses / Procedures Referred By Contac t Referred To Contact Gynecology Diagnoses Vaginal bleeding Procedures CONSULT TO GYNECOLOGY OFFICE/OUTPATIENT NEW HIGH MDM 60-74 MINUTES Zane Galvan, [address] [place] [address] Referral ID Status Reason Start Date Expiration Date Visits Requested Visits Authorized [id number] Pending Review PCP Requested Referral Auto-Generate d Referral 3 09/08/2024 1 1 Status Reason Specialty Diagnoses / Procedures Referred By Contact Referred To Contact Pending Review Diagnoses Left knee pain, unspecified chronicity Procedures XR BONE LENGTH STUDY Adrian Bustamante MD [address] [place] [address] Reason Comments Knee Pain Pain New Patient Reason Onset Date Comments Refill Request 07/03/2022 Reason Onset Date Comments Refill Request 07/07/2022 Reason Comments Results Reason Onset Date Comments Refill Request 01/20/2023 Reason Comments 6 Month Exam Reason Onset Date Comments Refill Request 07/02/2023 Reason Comments Knee Pain X 1 week Reason Comments Results Reason Comments Yearly Exam Reason Comments left knee weakness left knee discomfort Reason Comments Patient Question Reason Comments Endometrial Biopsy Reason Comments Hypertension INFORMATION SOURCE (unrecogn ized section and content) DATE CREATED AUTHOR AUTHOR'S ORGANIZ ATION 11/12/2023 [facility] DATE CREATED AUTHOR AUTHOR'S ORGANIZ ATION 12/01/2023 [facility] Source Comments (unrecognize d section and content) In the event this informatio n is protected by the Federal Confidentiality of Alcohol and Drug Abuse Patient Records regulations: The Federal rules restrict any use of the information to criminally investigate or prosecute any alcohol or drug abuse patient.[facility] the event this information is protected by the Federal Confidentiality of Alcohol and Drug Abuse Patient Records regulations: The Federal rules restrict any use of the information to criminally investigate or prosecute any alcohol or drug abuse patient.[facility] Center[facility] the event this information is protected by the Federal Confidentiality of Alcohol and Drug Abuse Patient Records regulations: The Federal rules restrict any use of the information to criminally investigate or prosecute any alcohol or drug abuse patient.[facility] CenterIn the event this information is protected by the Federal Confidentiality of Alcohol and Drug Abuse Patient Records regulations: The Federal rules restrict any use of the information to criminally investigate or prosecute any alcohol or drug abuse patient.[facility] CenterIn the event this information is protected by the Federal Confidentiality of Alcohol and Drug Abuse Patient Records regulations: The Federal rules restrict any use of the information to criminally investigate or prosecute any alcohol or drug abuse patient.[facility] CenterIn the event this information is protected by the Federal Confidentiality of Alcohol and Drug Abuse Patient Records regulations: The Federal rules restrict any use of the information to criminally investigate or prosecute any alcohol or drug abuse patient.[facility] CenterIn the event this information is protected by the Federal Confidentiality of Alcohol and Drug Abuse Patient Records regulations: The Federal rules restrict any use of the information to criminally investigate or prosecute any alcohol or drug abuse patient.[facility] CenterIn the event this information is protected by the Federal Confidentiality of Alcohol and Drug Abuse Patient Records regulations: The Federal rules restrict any use of the information to criminally investigate or prosecute any alcohol or drug abuse patient.[facility] CenterIn the event this information is protected by the Federal Confidentiality of Alcohol and Drug Abuse Patient Records regulations: The Federal rules restrict any use of the information to criminally investigate or prosecute any alcohol or drug abuse patient.[facility] CenterIn the event this information is protected by the Federal Confidentiality of Alcohol and Drug Abuse Patient Records regulations: The Federal rules restrict any use of the information to criminally investigate or prosecute any alcohol or drug abuse patient.[facility] CenterIn the event this information is protected by the Federal Confidentiality of Alcohol and Drug Abuse Patient Records regulations: The Federal rules restrict any use of the information to criminally investigate or prosecute any alcohol or drug abuse patient.[facility] CenterIn the event this information is protected by the Federal Confidentiality of Alcohol and Drug Abuse Patient Records regulations: The Federal rules restrict any use of the information to criminally investigate or prosecute any alcohol or drug abuse patient.[facility] CenterIn the event this information is protected by the Federal Confidentiality of Alcohol and Drug Abuse Patient Records regulations: The Federal rules restrict any use of the information to criminally investigate or prosecute any alcohol or drug abuse patient.[facility] CenterIn the event this information is protected by the Federal Confidentiality of Alcohol and Drug Abuse Patient Records regulations: The Federal rules restrict any use of the information to criminally investigate or prosecute any alcohol or drug abuse patient.[facility] CenterIn the event this information is protected by the Federal Confidentiality of Alcohol and Drug Abuse Patient Records regulations: The Federal rules restrict any use of the information to criminally investigate or prosecute any alcohol or drug abuse patient.[facility] CenterIn the event this information is protected by the Federal Confidentiality of Alcohol and Drug Abuse Patient Records regulations: The Federal rules restrict any use of the information to criminally investigate or prosecute any alcohol or drug abuse patient.[facility] CenterIn the event this information is protected by the Federal Confidentiality of Alcohol and Drug Abuse Patient Records regulations: The Federal rules restrict any use of the information to criminally investigate or prosecute any alcohol or drug abuse patient.[facility] CenterIn the event this information is protected by the [facility] Confidentiality of Alcohol and Drug Abuse Patient Records regulations: The Federal rules restrict any use of the information to criminally investigate or prosecute any alcohol or drug abuse patient.[facility] CenterIn the event this information is protected by the Federal Confidentiality of Alcohol and Drug Abuse Patient Records regulations: The Federal rules restrict any use of the information to criminally investigate or prosecute any alcohol or drug abuse patient.[facility] Care Teams (unrecognized sec tion and content) Solar Electric/Photovoltaic Installer Relationship Specialty Start Date End Date Zane Galvan, DO [address] [place] [address] PCP - General 06/21/15 Solar Electric/Photovoltaic Installer Relationship Specialty Start Date End Date Zane Galvan, DO [address] [place] [address] PCP - General 06/21/15 Solar Electric/Photovoltaic Installer Relationship Specialty Start Date End Date Zane Galvan, DO [address] [place] [address] PCP - General 06/21/15 Solar Electric/Photovoltaic Installer Relationship Specialty Start Date End Date Zane Galvan DO [address] [facility] [place] [address] PCP - General 06/21/15 Solar Electric/Photovoltaic Installer Relationship Specialty Start Date End Date Zane Galvan DO [address] [facility] [place] [address] PCP - General 06/21/15 Solar Electric/Photovoltaic Installer Relationship Specialty Start Date End Date Zane Galvan DO [address] [facility] [place] [address] PCP - General 06/21/15 Solar Electric/Photovoltaic Installer Relationship Specialty Start Date End Date Zane Galvan DO [address] [place] [address] PCP - General 06/21/15 Solar Electric/Photovoltaic Installer Relationship Specialty Start Date End Date Zane Galvan DO [address] [facility] [place] [address] PCP - General 06/21/15 Solar Electric/Photovoltaic Installer Relationship Specialty Start Date End Date Zane Galvan DO [address] [place] [address] PCP - General 06/21/15 Solar Electric/Photovoltaic Installer Relationship Specialty Start Date End Date Zane Galvan DO [address] [facility] [place] [address] PCP - General 06/21/15 Solar Electric/Photovoltaic Installer Relationship Specialty Start Date End Date Zane Galvan DO [address] [facility] [place] [address] PCP - General 06/21/15 Solar Electric/Photovoltaic Installer Relationship Specialty Start Date End Date Zane Galvan, DO [address] [place] [address] PCP - General 06/21/15 Solar Electric/Photovoltaic Installer Relationship Specialty Start Date End Date Zane Galvan, DO [address], [place] [address] PCP - General 06/21/15 Solar Electric/Photovoltaic Installer Relationship Specialty Start Date End Date Zane Galvan, DO [address], [place] [address] PCP - General 06/21/15 FOR RECORDS PERTAINING TO PATIENTS WHO ARE OR HAVE BEEN ENROLLED IN A CHEMICAL DEPENDENCY/SUBSTANCEABUSE PROGRAM, SOME INFORMATION MAY BE OMITTED. This clinical summary was aggregated from multiple sources. Caution should be exercised in using it in the provision of clinical care. This summary normalizes information from multiple sources, and as a consequence, information in this document may materially change the coding, format and clinical context of patient data. In addition, data may be omitted in some cases. CLINICAL DECISIONS SHOULD BE BASED ON THE PRIMARY CLINICAL RECORDS. [facility]. provides no warranty or guarantee of the accuracy or completeness of information in this document.
--- NOTE | 2023-12-03 16:31 | EDS_ITS ---
HPI History of Present Illness Chief Complaint: Lower Extremity Injury Narrative Narrative: 78-year-old female presenting with left calf pain. She states it hurts worse at night. When she is up. Today does not really give her much grief. She has been taking ibuprofen at home with relief during the daytime but not at nighttime. Her only risk factor is recent travel in September. No history of DVT/PE otherwise. No chest pain or shortness of breath. She not on any hormones. She notes no discoloration of the leg. Her pain is not severe. Again this is only at night. Denies any trauma. No numbness or tingling. PFSH PFSH Home Medications ezetimibe 10 mg tablet 10 mg PO QHS 12/22/13 [History Last Taken 07/26/15] lisinopril 10 mg tablet 10 mg PO DAILY 12/22/13 [History Last Taken 07/26/15] hydrocodone-acetaminophen 5-325mg 5mg-325mg 1 tab PO Q6H PRN PRN Pain ##30 07/29/15 [Rx Last Taken Unknown] methylprednisolone 4 mg tablets in a dose pack 4 mg PO UD ##1 07/29/15 [Rx Last Taken Unknown] meloxicam 15 mg tablet 15 mg PO QHS PRN PRN pain #30 tabs 12/03/23 [Rx Last Taken Unknown] Allergy/AdvReac Type Severity Reaction Status Date / Time sulfamethoxazole Allergy Other Verified 12/03/23 15:10 [From ] trimethoprim [From ] Allergy Other Verified 12/03/23 15:10 Social History Smoking Status: Never smoker ROS ROS ED Constitutional Constitutional ED: Denies chills, fever(s) or sweats Eyes Eyes: Denies blurry vision or change in vision ENT ENT ED: Denies ear pain or sore throat Cardiovascular Cardiovascular: Denies chest pain, palpitations or racing heartbeat Respiratory/Chest Respiratory/Chest: Denies cough, dyspnea or sputum Gastrointestinal Gastrointestinal: Denies abdominal pain, constipation, diarrhea, nausea or vomiting Genitourinary Genitourinary ED: Denies dysuria, hematuria or urinary frequency Musculoskeletal Musculoskeletal: Reports other Details: Left calf pain ; Denies arthralgias, myalgias or neck pain Integumentary Denies abscess, Abrasions or rash Neurologic Neurologic: Denies headache(s), paresthesias or weakness Psychiatric Psychiatric: Denies anxiety, depression, suicidal ideation or suicidal thoughts Endocrine Endocrinology: Denies polydipsia or polyuria EXAM Physical Exam Const Vital Signs: 12/03/23 15:10 Temperature 97.5 F L Temperature Source Temporal Pulse Rate 96 Respiratory Rate 18 Blood Pressure 153/62 H Blood Pressure Mean 92 Pulse Ox 96 Oxygen Delivery Method Room Air Positive well nourished General Appearance ED: NAD HEENT Reports moist mucous membranes normocephalic and atraumatic Cardio regular rate and regular rhythm Extremity Extremity Narrative: Tenderness to palpation mid distal calf. No discoloration, swelling, cords palpated. Neurovascularly intact. Compartments are soft. Neuro oriented x3 and CN's II-XII intact bilaterally Sensorium / Orientation: alert Motor Exam: strength 5/5 throughout Psych mental status grossly normal Skin no wounds MDM MDM MDM Narrative Medical decision making narrative: Patient presenting with left calf pain. She had a duplex today that shows a DVT in the peroneal vein. She has minimal symptoms especially on exam. There is no obvious discoloration or swelling. Patient states her pain is only bad at night and she is taken ibuprofen. She states she was sent in by her PCP for evaluation. Given this I will talk to her PCP regarding the peroneal vein DVT and pain control. Discussed with Dr. Herrera who is on-call for Dr. Malcolm. She recommended meloxicam for bedtime, compression stocking. She recommended no blood thinners as this is a distal peripheral DVT. Patient counseled on findings and plan. She is amenable to this. She will be discharged to follow- up in 2 weeks for repeat DVT study. Impression: 1. Peroneal DVT 2. Left calf pain Lab Data Attestation: I reviewed the patient's lab results. Discharge Plan Triage Chief Complaint: Lower Extremity Injury ED Provider: Owen Neely Dx/Rx/DC Orders Instructions: ED Deep Vein Thrombosis (DVT) Prescriptions: New meloxicam 15 mg tablet 15 mg PO QHS PRN PRN (Reason: pain) Qty: 30 0RF No Action lisinopril 10 MG tablet 10 mg PO DAILY Patient Comments: BLOOD PRESSURE ezetimibe 10 MG tablet 10 mg PO QHS Patient Comments: BLOOD PRESSURE methylprednisolone 4 MG tablet 4 mg PO UD Qty: 1 0RF hydrocodone-acetaminophen 1 TABLET tablet 1 tab PO Q6H PRN PRN (Reason: Pain) Qty: 30 0RF Primary Care Provider: Zane Malcolm Referrals: Zane Malcolm DO [Primary Care Provider] - Activity Restrictions/Additional Instructions: You have a small peripheral DVT. You do not need to be on blood thinners for this. I spoke with Dr. Herrera who is on-call for Dr. Malcolm. She recommended no anticoagulation on blood thinners and she recommended meloxicam at bedtime for pain. She also recommended a compression stocking which was discussed with you at the bedside. You will need a repeat ultrasound in 2 weeks. Return as we discussed. Disposition Disposition: Home, Self Care
== END 2023-12-03 17:15 | disposition home or self-care (01) ==
PROVIDERS: Emergency Provider Student in an Organized Health Care Education/Training Program; PCP Student in an Organized Health Care Education/Training Program; Visit Provider Student in an Organized Health Care Education/Training Program
DX: I82.452 Acute embolism and thrombosis of left peroneal vein (principal); M79.662 Pain in left lower leg
CPT/HCPCS: 93971; 99282

== ENCOUNTER 2025-08-30 20:30 | Emergency (ER) | payer MEDICARE, SELFPAY ==
[2025-08-30 20:32] VITALS: BP 173/77; PULSE 80; RESP 18; TEMP 36.7; O2SAT 97
--- NOTE | 2025-08-30 21:41 | CT_ITS ---
PROCEDURE: BRAIN/HEAD WITHOUT CONTRAST 08/30/2025 REASON FOR EXAM: FALL TECHNIQUE: Procedure Code: CTBR Modality: CT Procedure: BRAIN/HEAD WITHOUT CONTRAST Coronal and Sagittal reconstruction series were provided. One or more dose reduction techniques were used (e.g., Automated exposure control, adjustment of the mA and/or kV according to patient size, use of iterative reconstruction technique. FINDINGS: No acute intracranial hemorrhage. No midline shift. Moderate generalized atrophy with commensurate ventriculomegaly.. No extra-axial fluid collection is identified. No fracture. The calvarium is intact. The visualized paranasal sinuses and mastoid air cells are clear. Small scalp contusion over the posterior calvarium. CT/Brain/Head without Contrast IMPRESSION: No acute intracranial CT abnormality. Small posterior scalp contusion. Reading Location: [id number]
--- NOTE | 2025-08-30 21:41 | CT_ITS ---
PROCEDURE: SPINE CERVICAL WITHOUT CONTRAS 08/30/2025 REASON FOR EXAM: FALL TECHNIQUE: Procedure Code: CTSPC Modality: CT Procedure: SPINE CERVICAL WITHOUT CONTRAS Coronal and Sagittal reconstruction series were provided. One or more dose reduction techniques were used (e.g., Automated exposure control, adjustment of the mA and/or kV according to patient size, use of iterative reconstruction technique. FINDINGS: Patient positioning limits evaluation, particularly on the axial images. No acute fracture. Minimal grade 1 anterolisthesis of C4 on C5, C5 on C6, and C7 on T1. Mild disc space narrowing is present at C5-6 and C7-T1 facet arthrosis is present throughout the cervical spine, which contributes to multilevel bilateral neural foraminal narrowing grossly, the unopacified cervical canal appears ample. Degenerative calcification of the apical ligament, with thickening of the cruciate ligaments. The prevertebral soft tissues appear unremarkable. CT/Spine Cervical without Contras IMPRESSION: No CT evidence of acute traumatic injury to the cervical spine. Moderate cervical spondylosis, as described above. Reading Location: [id number]
[2025-08-30 23:01] VITALS: BP 158/64; PULSE 75; RESP 18; BMI 24.9
--- NOTE | 2025-08-30 23:38 | EX.ED.GENINJ ---
HPI History of Present Illness Chief Complaint: Head Injury Narrative Narrative: Patient is a 79-year-old female presenting to the emergency department after a fall. Patient was walking behind her who has normal pressure hydrocephalus who lost his balance falling backwards and causing her to fall backwards striking the back of her head. She struck the back of her head. Denies any loss of consciousness. Denies any use of oral anticoagulation. Denies any neck or back pain. She was able to ambulate afterwards. Denies any pain in her arms, legs or hips. Unknown last tetanus. [facility] Medical History Hyperlipemia HTN (hypertension) Bowel obstruction Home Medications ?Medication ?Instructions ?Recorded ?Last Taken ?Type ezetimibe 10 mg tablet 10 mg PO QHS 12/22/13 07/26/15 History lisinopril 10 mg tablet 10 mg PO DAILY 12/22/13 07/26/15 History hydrocodone-acetaminophen 5-325mg 1 tab PO Q6H PRN PRN Pain ##30 07/29/15 Unknown Rx 5mg-325mg methylprednisolone 4 mg tablets in 4 mg PO UD ##1 07/29/15 Unknown Rx a dose pack meloxicam 15 mg tablet 15 mg PO QHS PRN PRN pain #30 tabs 12/03/23 Unknown Rx Allergy/AdvReac Type Severity Reaction Status Date / Time sulfamethoxazole (From Allergy Other Verified 08/30/25 20:31 Sept) trimethoprim (From ) Allergy Other Verified 08/30/25 20:31 Surgical History Hx of appendectomy Social History household members: spouse Smoking Status: Never smoker ROS ROS ED ROS Narrative see HPI EXAM Physical Exam Narrative Exam Narrative: Vital signs: Reviewed General: Alert and oriented. No acute distress HEENT: Head is normocephalic. Small cephalhematoma to the left posterior region of the head. There is a small overlying abrasion. No active bleeding. No laceration. Midface is nontender, pupils 2 mm equal round and reactive. Nares are patent. No septal hematoma. Oropharynx and throat exams normal. No oropharyngeal trauma. Neck: Supple without lymphadenopathy nontender. No midline cervical spinal tenderness to palpation. No step-offs or deformities. Cardiovascular: Regular rate and rhythm, no murmurs. No rubs or gallops. Normal S1 and S2 Respiratory: Clear to auscultation bilaterally. No wheezes, rales, rhonchi Chest: Chest wall is atraumatic and nontender to palpation. No crepitus, erythema or ecchymosis. Abdominal: Soft and nontender. Normal bowel sounds. No guarding or rebound. Nonsurgical abdomen Extremities: No midline thoracic or lumbar spinal tenderness to palpation. No step-offs or deformities. Hips are stable and nontender to palpation. Extremities are atraumatic and nontender to palpation with normal active range of motion. No tenderness. No bruising. Normal range of motion. Normal sensation. Skin: No rash or redness. Neurological: Cranial nerves II through XII are grossly intact. Normal strength and sensation. Normal cerebellar function The rest of the physical exam is unremarkable Const Vital Signs: 08/30/25 20:32 08/30/25 23:00 08/30/25 23:01 Temperature 98.1 F Temperature Source Temporal Pulse Rate 80 75 Respiratory Rate 18 18 Respiratory Effort Normal Non-Labored Respiratory Depth Normal Respiratory Pattern Normal Blood Pressure 173/77 H 158/64 H Blood Pressure Mean 109 95 Pulse Ox 97 Oxygen Delivery Method Room Air Room Air MDM MDM MDM Narrative Medical decision making narrative: Patient is a 79-year-old female presenting to the emergency department after a fall. Patient was seen and examined. Vitals are stable. Patient resting in bed comfortably no acute distress. Purely mechanical fall. No indication for labs. Patient has no hip pain or extremity pain, able to ambulate. Do not think patient needs xray imaging at this time. CT brain shows no acute intracranial abnormality. Small posterior scalp contusion. CT cervical spine with no evidence of acute traumatic injury. The abrasion was irrigated copiously by nursing staff. Again no active bleeding or laceration that requires repair. Tetanus was updated. Patient ambulated without difficulty. Patient and family were updated on the negative results. Given wound care instructions. Patient discharged from the Emergency Department. I do not feel that the patient's evaluation reveals any acute reason for admission at this time. I instructed them to either follow-up with their primary care physician or promptly return to the Emergency Department for reevaluation should symptoms worsen or new symptoms develop. I explained what symptoms would indicate the need to return to the emergency department. Shared decision making was used. The patient voiced understanding of the treatment plan and is agreeable with it. Clinical impression Fall Abrasion of head History & Record Review Discussion w/independent historian: Patient, Family and Significant other Radiography Diagnostic Testing: Clinical Impression(s) from Imaging Studies Brain CT 08/30/25 21:41 IMPRESSION: No acute intracranial CT abnormality. Small posterior scalp contusion. Reading Location: [id number] Cervical Spine CT 08/30/25 21:41 IMPRESSION: No CT evidence of acute traumatic injury to the cervical spine. Moderate cervical spondylosis, as described above. Reading Location: [facility] Discharge Plan Triage Chief Complaint: Head Injury ED Provider: Tamy Crowell Dx/Rx/DC Orders Clinical Impression: Fall, Abrasion of head Instructions: ED Head Injury (Adult), ED Fall Prevention Prescriptions: No Action lisinopril 10 MG tablet 10 mg PO DAILY Patient Comments: BLOOD PRESSURE ezetimibe 10 MG tablet 10 mg PO QHS Patient Comments: BLOOD PRESSURE methylprednisolone 4 MG tablet 4 mg PO UD Qty: 1 0RF hydrocodone-acetaminophen 1 TABLET tablet 1 tab PO Q6H PRN PRN (Reason: Pain) Qty: 30 0RF meloxicam 15 mg tablet 15 mg PO QHS PRN PRN (Reason: pain) Qty: 30 0RF Primary Care Provider: Zane Malcolm Referrals: Zane Malcolm, [Primary Care Provider, Medical] - As soon as possible Activity Restrictions/Additional Instructions: Your evaluation in the Emergency Department did not reveal any acute reason for admission. However, I want to emphasize that you may be early in the course of a disease process or illness even if it is not present. For this reason you should follow-up within 24 hours for reevaluation with either your primary care physician or if necessary back here in the Emergency Department. You should return to the Emergency Department immediately if your symptoms worsen or new symptoms develop. Print Language: Estonian Disposition Disposition: Home, Self Care
[2025-08-30 23:49] VITALS: BP 158/64; PULSE 75; RESP 18; TEMP 36.7; O2SAT 100
== END 2025-08-30 23:50 | disposition home or self-care (01) ==
PROVIDERS: Emergency Provider Student in an Organized Health Care Education/Training Program; PCP Student in an Organized Health Care Education/Training Program; Visit Provider Student in an Organized Health Care Education/Training Program
DX: S00.81XA Abrasion of other part of head, initial encounter (principal); G91.2 (Idiopathic) normal pressure hydrocephalus; S00.03XA Contusion of scalp, initial encounter; W01.0XXA Fall on same level from slipping, tripping and stumbling without subsequent striking against object, initial encounter; I10 Essential (primary) hypertension; E78.5 Hyperlipidemia, unspecified; Z79.899 Other long term (current) drug therapy
CPT/HCPCS: 70450; 72125; 90715; 99282